=== PATIENT | female | born 1945 | race Caucasian/White ===

== ENCOUNTER 2016-06-24 08:07 | Inpatient (IN) | payer MEDICARE, MEDICAID ==
[~2016-06-24] VITALS: Ht 152.4 cm; Wt 47.3 kg
[2016-06-24] VITALS (7 sets, daily range): BP systolic 128–152; BP diastolic 58–73; PULSE 73–103; RESP 14–24; O2SAT 95–97
[~2016-06-24 08:07] MED LIST: ACET325T51 PO; ALBU8.5H2 INHALATION; AMLO10TA3 PO; ASPI-973 PO; ATRV10T PO; HCTZ25 PO; KEN25CR EXT; METO50TA3 PO; MULT1CAP33 PO; PLAVIX (*) 75 M75 MG PO; ZES20 PO
--- NOTE | 2016-06-24 08:19 | ED.REPORT ---
HPI-Chest Pain 40 and Over Date of Service Jun 24, 2016 ED Provider: Wood Siegel MD 71 year old female with a history of HTN who is an everyday smoker presents to the ER via EMS accompanied by her son and [id number] complaining of chest pressure and palpitations early this morning. Symptoms are currently resolved. She states that she awakened around 02:00-03:00 feeling weak and diaphoretic. Shortly after awakening she experienced chest discomfort, palpitations, and mild nausea. Patient denies radiation of pain to the back, neck, or upper extremities, SOB, history of OR, and CAD. Nursing Notes Stated Complaint: EPIGASTRIC PAIN Chief Complaint: General Complaint Nursing Notes Reviewed: Yes Allergies: Coded Allergies: codeine (Verified Allergy, Mild, Hallucinations, 06/24/16) oxycodone (Verified Adverse Reaction, Unknown, N/V, 06/24/16) Uncoded Allergies: OPIOIDS (Allergy, Unknown, Nausea,Vomiting, 06/24/16) SOME SOAP (Allergy, Unknown, RASH, 11/19/04) Scheduled Albuterol HFA (Proair HFA) 8.5 Gm Hfa.aer.ad 2 PUFFS INHALATION Q4H Amlodipine (Amlodipine) 10 Mg Tablet 10 MG PO DAILY Aspirin (Aspirin) 81 Mg Tablet 81 MG PO DAILY Atorvastatin (Lipitor) 10 Mg Tab 10 MG PO DAILY Clopidogrel Bisulfate (Plavix) 75 Mg Tablet 75 MG PO DAILY Hydrochlorothiazide (Hydrochlorothiazide) 25 Mg Tablet 25 MG PO DAILY Lisinopril (Lisinopril) 20 Mg Tablet 20 MG PO DAILY Metoprolol Tartrate (Metoprolol Tartrate) 50 Mg Tablet 50 MG PO BID Multivitamin (Multivitamins) 1 Each Capsule 1 EACH PO DAILY Triamcinolone Acet (Triamcinolone Acetonide Cream) 1 Applic/0.25 Gm Cr 1 APPLIC EXT BID General Time Seen by MD: 08:14 Chief Complaint Chest pressure Hx Obtained From: Patient Arrived By: Ambulance Sudden in Onset?: Yes Onset Occurred: 5 - 8 hours ago Location: : Substernal Quality: Pressure Severity: Current: No pain currently Severity: Maximum: Moderate Associated with: Reports: Diaphoresis, Nausea, Palpitations, Weakness, Denies: Shortness of Breath Context Related History: Reports: Hypertension, Denies: Diabetes mellitus, Myocardial infarction Past Medical History Past Medical History Reports: Hypertension, Denies: Diabetes mellitus Past Surgical History Bleeding stomach ulcer with resection Carotid stent placement Reports: Cholecystectomy, Hysterectomy Family History Parents [place], CVA Smoking History Current Every Day Smoker Social History Other Social History: Good social support Review of Systems Constitutional: Reports: Weakness - generalized, Denies: Chills, Fever Respiratory: Denies: Non-productive cough, Shortness of breath Cardiovascular: Reports: Chest pain, Palpitations GI: Reports: Nausea, Denies: Diarrhea, Vomiting Musculoskeletal: Denies: Back pain, Extremity pain, Neck pain Skin: Reports Diaphoresis Complete sys rev & neg: except as marked. Physical Exam Initial Vital Signs Vital Signs (First) Date Time Temp Pulse Resp B/P Pulse Ox O2 Delivery O2 Flow Rate FiO2 06/24/16 08:16 36.8 83 14 152/58 97 Room Air Initial VS: Reviewed Head / Eyes: Atraumatic, Normocephalic Neck: Supple, Non-tender, Full range of motion Extremities: Vascular intact, Neuro intact, No swelling, No tenderness Skin: Warm, Dry, No cyanosis Neurologic: Alert, Oriented, Nonfocal General/Constitutional: Awake, Alert, Well appearing, Well developed, Well nourished Respiratory / Chest: Breath sounds NL, Breath sounds = bilat, No respiratory distress, No rales, No rhonchi, No wheezing, No stridor, No chest tenderness Cardiovascular: Heart rate NL, Regular rhythm Heart Sounds / Murmur: Positive: Systolic murmur present.. (II/, right second intercostal space) Abdomen: Soft, Non-tender, No guarding, No rebound, No distention Interpretation & Diagnostics Lab Results Interpretation Result Diagram: 06/24/16 0810 06/24/16 0810 Test 06/24/16 08:10 06/24/16 10:38 White Blood Count 16.3th/mm3 (3.8-10.1) Red Blood Count 3.49mil/mm3 (3.90-5.20) Hemoglobin 11.6g/dL (12.0-15.6) Hematocrit 33.4% (35.0-46.0) Mean Corpuscular Volume 95.7fL (81-100) Mean Corpuscular Hemoglobin 33.2pg (27.0-35.0) Mean Corpuscular Hemoglobin Concent 34.7% (32.0-37.0) Red Cell Distribution Width 12.2% (12.3-15.4) Platelet Count 287bil/L (150-400) Neutrophils (%) (Auto) 67.1% (40-74) Lymphocytes (%) (Auto) 24.4% (14-46) Monocytes (%) (Auto) 6.4% (4-12) Eosinophils (%) (Auto) 1.6% (0-5) Basophils (%) (Auto) 0.2% (0-3) Prothrombin Time 10.6sec (8.1-12.5) Prothromb Time International Ratio 0.99ratio Sodium Level 137mEq/L (134-144) Potassium Level 3.6mEq/L (3.5-5.2) Chloride Level 95mEq/L (97-108) Carbon Dioxide Level 26mmol/L (18-29) Blood Urea Nitrogen 45mg/dL (8-27) Creatinine 0.76mg/dL (0.57-1.00) Estimat Glomerular Filtration Rate 108mL/min (>59) Glucose Level 114mg/dL (60-99) Calcium Level 9.7mg/dL (8.5-10.1) Total Bilirubin 0.7mg/dL (0.0-1.2) Aspartate Amino Transf (AST/SGOT) 17U/L (0-50) Alanine Aminotransferase (ALT/SGPT) 13U/L (0-32) Alkaline Phosphatase 55U/L (25-165) Total Protein 7.0g/dL (6.4-8.4) Albumin 4.4g/dL (3.4-5.0) Lab Results Interpretation: ECG Interpretation Time: 08:20 Interpreted by: ED physician Normal ECG Interpretation: Normal rate, Normal sinus rhythm, No acute ischemic changes, Normal QRS, Normal axis, Normal intervals, No change from prior ECGs, Adequate tracing Rhythm Strip Interpretation : Rhythm Strip Interpretation: EMS ECG, prior to arrival in the ER: 1mm ST elevation aVR Abnormal T in aVL ST depression in II, III, aVF Time: 07:22 Rhythm Strip Interpretation: Interpreted by me X-Ray Chest Interpretation Chest Xray Interpretation: IMPRESSION: No acute cardiopulmonary disease. Dictated by: Milind Ryder M.D. on 06/24/2016 at 9:21 Approved by: Milind Ryder M.D. on 06/24/2016 at 9:21 View: Portable, 1 view Interpretation / Wet Read by: Interpret - Radiologist Re-Eval/Medical Decision Source of Hx: Old records Time of Eval: 10:13 Re-Evaluation/Progress Note: Discussed lab and radiology results and need for admission. Patient is amenable to the plan. All other questions addressed. 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 I, Dr. Siegel, personally performed the history, physical exam and medical decision-making; I reviewed and confirmed the accuracy of the information in the transcribed note. Signed by: Kwadwo Allen, 06/24/2016 and 10:18 copies to: Alexsandra Cortez MD, Kirk H MD Jun 24, 2016 08:19 RICHARD ANLGIN Jun 24, 2016 08:24
[2016-06-24] MEDS ORDERED: Nitroglycerin 2% 1 Gm Ointment TOPICAL ONE (08:20)
[2016-06-24] MEDS ORDERED: MeTOProlol 1 mg/mL 5 mL Inj IVPUSH PRN (08:20)
[2016-06-24 08:42] LABS: INR 0.99 ratio
[2016-06-24] MEDS ORDERED: HYDR25TA4 PO (08:43)
[2016-06-24] MEDS ORDERED: CLOP75TA3 PO (08:43)
[2016-06-24] MEDS ORDERED: LISI-567 PO (08:43)
[2016-06-24 08:46] LABS: BASOPHILS % (AUTO) 0.2 % (0-3); EOSINOPHILS % (AUTO) 1.6 % (0-5); MONOCYTES % (AUTO) 6.4 % (4-12); Mean Corpuscular Hemoglobin 33.2 pg (27.0-35.0); Mean Corpuscular Volume 95.7 fL (81-100); NEUTROPHILS % (AUTO) 67.1 % (40-74); Platelet Count 287 bil/L (150-400)
[2016-06-24 08:48] LABS: TROPONIN T 0.01 ug/L (0.0-0.011)
--- NOTE | 2016-06-24 09:23 | DRSVH ---
PROCEDURE: X-RAY CHEST ONE VIEW, PORTABLE ([id number]) INDICATIONS: CHEST PAIN TECHNIQUE: One view of the chest was acquired. COMPARISON: [facility], , CHEST 1VW (PORTABLE), 06/28/2012, 16:18. FINDINGS: Surgical changes and devices: Surgical clips in the left neck. Lungs and pleura: No pleural effusions or pneumothorax. Lungs are clear. Mediastinum: Mediastinal contours appear normal. Heart size is normal. Mitral annular calcificatio n noted. Bones and chest wall: No suspicious bony lesions. Overlying soft tissues appear unremarkable. IMPRESSION: No acute cardiopulmonary disease. Dictated by: Milind Ryder M.D. on 06/24/2016 at 9:21 Approved by: Milind Ryder M.D. on 06/24/2016 at 9:21
[2016-06-24] MEDS ORDERED: Senna-Docusate 8.6-50 mg Tablet PO PRN (10:40)
[2016-06-24] MEDS ORDERED: Polyethylene Glycol (PEG) 17 Gm Powder PO PRN (10:40)
[2016-06-24 11:46] LABS: TROPONIN T 0.01 ug/L (0.0-0.011)
[2016-06-24] MEDS ORDERED: ACET-171 PO (13:26)
--- NOTE | 2016-06-24 14:05 | NUR ---
Admit nurse note Admission assessment completed in the ER. Med rec completed per PCP list and pt. recall. Pt. c/o 11/15 chronic back pain, asks for tylenol, which is what she usually takes. notified. Pt. also c/o increasing stomach pain worse when her stomach is empty, as well as change in taste and appetite. Hx significant for bleeding ulcer and partial gastrectomy. Pt. educated about collecting stool sample when she has a bm. Pt. states she has had some depression and anxiety with the winter "shut in" but feels a bit better lately. States she manages well at home with her partner Francisco. Pt. is steady on her feet up to the bathroom but c/o feeling weak. Allergies verified and allergy sticker placed. Pt. states "most pain meds" especially opioids make her n/v. Pt. declines smoking quit kit. Advance directives information given per pt. request. Pt. oriented to room, call garcia and fall precautions. Report to be given when a receiving RN is assigned. Addendum: 06/24/16 at 1524 by LETY DE JESUS RN Report given to Jana Holland.
[2016-06-24] MEDS ORDERED: Acetaminophen IV 1,000 MG in IV Premix 1 EACH IV ONE (14:45)
[2016-06-24] MEDS ORDERED: Pantoprazole 4 mg/mL 10 mL Inj IVPUSH ONE (14:45)
[2016-06-24] MEDS ORDERED: Albuterol 2.5 mg/3 mL Inhalation Solution NEB PRN (15:05)
--- NOTE | 2016-06-24 15:06 | PCM.HPMED ---
Subjective Date of Service Jun 24, 2016 Primary Provider: Admitting Physician: Primary Care Physician: Alexsandra Cortez MD Attending Physician: Chief Complaint: Chest pressure History of Present Illness: 71 year-old female past medical history of known vascular disease, status right endarterectomy, and long history of tobacco dependence, presenting to emergency room today following chest pain of abrupt onset around 2:00 in the morning which woke her from sleep. At that time she noted experiencing profuse diaphoresis, intermittent sweats and chills, and shortness of breath. Condition did improve over next 15 minutes, she has continued to experience recurrent palpitations and chest pressure since that time. Preceding this event she has noted approximately 1 week history of upset stomach and indigestion, abnormal bowel function intermittent constipation and a bout of diarrhea yesterday evening. Additionally she notes experiencing significant amount of gas and bloating which is uncommon for her. She denies any previous history of chest pressure or pain experienced earlier today. She has not been experiencing any exertional dyspnea, or anginal symptoms preceding this event. She she follows regularly with her primary care doctor in outpatient setting, after [facility], who had noted previously that she suffered from hyperlipidemia and elevated blood pressures but these have been appropriately managed and she reports are in good control. She denies any history of extensive cardiac workup , as she has never experienced any chest pains or other cardiac symptoms in the past. At time of my exam she notes continued to experience some fluttering sensations of heart, without overt chest pain. She denies any recurrence of diaphoresis, or chills since initial event. She does note continued gassiness and bloating. She also notes significant low back/sacral pain, she experiences intermittently but is much worse today especially after the last couple of hours of hospital bed. He has no other complaints at this time. Review of Systems: 10 point review of systems was conducted and entirely negative excepting pertinent positives and negatives included in above history of present illness. Allergies Coded Allergies: codeine (Verified Allergy, Mild, Hallucinations, 06/24/16) oxycodone (Verified Adverse Reaction, Unknown, N/V, 06/24/16) Uncoded Allergies: OPIOIDS (Allergy, Unknown, Nausea,Vomiting, 06/24/16) SOME SOAP (Allergy, Unknown, RASH, 11/19/04) Home Medications Albuterol HFA (Proair HFA) 8.5 Gm Hfa.aer.ad 2 PUFFS INHALATION Q4H Amlodipine (Amlodipine) 10 Mg Tablet 10 MG PO DAILY Aspirin (Aspirin) 81 Mg Tablet 81 MG PO DAILY Atorvastatin (Lipitor) 10 Mg Tab 10 MG PO DAILY Clopidogrel Bisulfate (Plavix) 75 Mg Tablet 75 MG PO DAILY Hydrochlorothiazide (Hydrochlorothiazide) 25 Mg Tablet 25 MG PO DAILY Lisinopril (Lisinopril) 20 Mg Tablet 20 MG PO DAILY Metoprolol Tartrate (Metoprolol Tartrate) 50 Mg Tablet 50 MG PO BID Multivitamin (Multivitamins) 1 Each Capsule 1 EACH PO DAILY Triamcinolone Acet (Triamcinolone Acetonide Cream) 1 Applic/0.25 Gm Cr 1 APPLIC EXT BID PMH Hypertension Hyperlipidemia Gastric ulcer disease. Surgical History Bleeding stomach ulcer with resection Carotid endarterectomy Cholecystectomy Hysterectomy Family History Parents [place], CVA Social History Hx Alcohol Use: No Hx Substance Use: No Hx Tobacco Use: Yes Smoking Status: Current Every Day Smoker Exam Vital Signs Vital Sign - Last Date Time Temp Pulse Resp B/P Pulse Ox O2 Delivery O2 Flow Rate FiO2 06/24/16 09:10 85 18 139/65 97 Room Air 06/24/16 08:16 36.8 Exam General: Patient is alert and oriented, in no acute distress. Pleasant and cooperative examination HEENT: Pupils are round and reactive to light, extraocular eye muscles are intact. Mucous membranes are moist. No oral lesions noted. Neck is supple without masses. No JVD demonstrated. Heart: Regular rate and rhythm, no murmurs rubs or gallops. Bounding pulse Lungs: Clear to auscultation bilaterally. No wheezes crackles or rhonchi. Abdomen: Bowel sounds present, normoactive. Abdomen is nontender and nondistended. No organomegaly noted on palpation. No guarding. Extremities: Well perfused. Demonstrate no edema, no calf pain on palpation. Dorsal pedis pulses present bilaterally. Neurologic: Nonfocal examination. Cranial nerves II through XII are grossly intact. There is no tremor or other gross abnormality noted on exam. Lab and Diagnostics Result Diagram: 06/24/1680906/24/16809 Assessment & Plan 71-year-old female past medical history significant for extensive tobacco use, known carotid vascular disease, and family history of coronary artery disease, presenting with chest pain of acute onset at approximately 2:00 this morning which woke her from sleep and was accompanied with diaphoresis, placed on observation at this time for further evaluation of possible acute coronary syndrome. 1. Chest pain/rule out ACS - Patient was placed on hospital observation, monitor on continuous telemetry, all trending troponin values. - Echocardiogram and cardiac stress test apparently ordered and pending - Patient will be provided when necessary nitroglycerin in addition to morphine sulfate as needed for chest pain - Patient initiated on aspirin 81 mg daily, and continued on home statin. 2. Abdominal upset/ history of gastric ulcer disease - Patient is certainly at high risk for gastroesophageal reflux given history of ulcer disease. - We will trial intravenous proton pump inhibitor treatment of symptoms 3. Hyperlipidemia - Continue home statin consider titration to high intensity based on an a.m. lipid value, and other risk factors as determined during this hospitalization - We will additionally continue home clopidogrel given history of endarterectomy 4. Hypertension - Continue patient's own medications and monitor blood pressures during observation consider further changes as needed. 5. Low back/sacral pain - We will provide IV Tylenol at this time patient nothing by mouth - Restart oral therapy following stress testing. - Morphine also available for breakthrough pain not controlled with acetaminophen. 6. Nicotine dependence - Nicotine patch will be provided while patient in hospital. - Counseling on smoking cessation was provided to patient during admission Pain Evaluation: Adequate Pain Control GI Prophylaxis: Proton Pump Inhibitor VTE Mechanical Devices: Intermittant Pneumatic CD Resuscitation Status: CPR: Attempt Resuscitation Time spent 45 minutes Arben Liang DO Jun 24, 2016 15:06
--- NOTE | 2016-06-24 17:00 | NUR ---
admit Patient admitted to Room 239-2, A/O x3. Oriented to room and unit. Saline lock on Left AC, intact and patent. Denies any pain at this time. On 1 Person standby assist, patient weak at this time. Made comfortable in bed. Will continue to monitor.
[2016-06-24] MEDS: Sodium Chloride LOK Flush 10 mL Syringe IVFLUSH SCH (17:41)
[2016-06-25] VITALS (7 sets, daily range): BP systolic 112–129; BP diastolic 62–70; PULSE 70–101; RESP 18–19; O2SAT 95–98
[2016-06-25] MEDS: Sodium Chloride LOK Flush 10 mL Syringe IVFLUSH SCH ×3 (00:05→16:30)
--- NOTE | 2016-06-25 01:12 | NUR ---
Gas Pain Pt is stating stomach upset and gas. Pt received Protonix 40mg IV with good result earlier in day. Pt is NPO for possible stress test in A.M. paged
--- NOTE | 2016-06-25 05:51 | NUR ---
Palpitations Pt states she feels palpitations, diaphoretic, and feels warm. r&d lab technician states SR 74 PAC's 1st time and SR 80s second time. Pt is uneasy by due to cardiac reason why she is here. Charge nurse asked for assistance in calming patient. Care continues.
[2016-06-25 07:03] LABS: BASOPHILS % (AUTO) 0.3 % (0-3); EOSINOPHILS % (AUTO) 1.8 % (0-5); MONOCYTES % (AUTO) 7.1 % (4-12); Mean Corpuscular Volume 95.7 fL (81-100); NEUTROPHILS % (AUTO) 57.4 % (40-74); Platelet Count 208 bil/L (150-400)
[2016-06-25] MEDS ORDERED: Acetaminophen IV 1,000 MG in IV Premix 1 EACH IV PRN (08:40)
[2016-06-25] MEDS: Ondansetron 2 mg/mL 2 mL Inj IVPUSH PRN (09:17)
--- NOTE | 2016-06-25 11:46 | PCM.PNMED ---
Subjective Date of Service Jun 25, 2016 Subjective Patient had a difficult night, continues to experience epigastric/chest pains, addition to low back pain as well. She was nauseated overnight, had multiple episodes of emesis of yellow bilious fluid. 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 She states her abdomen is still upset and feeling mildly bloated. She denies any loose stools did not have any bowel movements overnight. She has mild amount hungry even in the setting of nausea, feels a small meal may be helpful in settling her stomach. No other acute complaints at this time. Denies shortness of breath or chest palpitations. Cardiology had reviewed the case in the emergency room, and elected to cancel cardiac stress testing given patient's unstable condition. Exam Vital Signs Vital Sign - Last Date Time Temp Pulse Resp B/P Pulse Ox O2 Delivery O2 Flow Rate FiO2 06/25/16 09:00 36.8 96 18 129/70 96 Room Air Intake and Output 06/24/16 06/24/16 06/25/16 Cumulative From/Thru 15:00 23:00 07:00 06/24/16 08:16 - 06/25/16 05:18 Intake Total 818 ml 818 ml Output Total 800 ml 800 ml Balance 18 ml 18 ml Intake Oral 818 ml 818 ml Output Urine Total 800 ml 800 ml General: Alert, Oriented X3, Moderate Distress Eyes: EOMI Mouth: Mucous Membranes Dry Chest & Lungs: Clear to auscultation & percussion Cardiovascular: Regular Rate/Rhythm Abdomen: Tender, Non-distended, No masses, Normoactive bowel tones, Soft Extremities: No cyanosis/clubbing/edma bilat Neurological: Grossly Neurologically Intact IVs and Medications Medications Reviewed: Medications were reviewed in detail Lab and Diagnostics Result Diagram: 06/25/1652906/25/16529 Assessment & Plan 71-year-old female past medical history significant for extensive tobacco use, known carotid vascular disease, and family history of coronary artery disease, presenting with chest pain of acute onset at approximately 2:00 this morning which woke her from sleep and was accompanied with diaphoresis, placed on observation at this time for further evaluation of possible acute coronary syndrome. 1. Chest pain/rule out ACS - Patient was placed on hospital observation, monitor on continuous telemetry, all trending troponin values. - Echocardiogram is still pending , however cardiac stress test was canceled on order from cardiology given patient's unstable condition. At this time gastrointestinal etiology discussed below appears more likely especially in the setting of normal troponin values and no other abnormal findings overnight on telemetry EKG monitoring. We will continue to consider the possibility of an acute coronary syndrome especially given patient's risk factors, nonetheless we will focus more on patient's gastrointestinal complaints at this time as they appear to be paramount in her discomfort and continued need for hospital observation. - Patient initiated on aspirin 81 mg daily, and continued on home statin. 2. Abdominal upset/ history of gastric ulcer disease - Patient is certainly at high risk for gastroesophageal reflux given history of ulcer disease. - We will t continue intravenous proton pump inhibitor treatment of symptoms, which patient notes was helpful yesterday afternoon while in emergency department. - Further we have a CT scan of abdomen with oral contrast pending this morning to evaluate further for possible gastrointestinal pathology. Patient's history of gastrectomy may be contributing to symptoms currently either in the form of infection, obstruction, or impaired emptying. We will consider further treatment and evaluation based on results. - Given poor by mouth intake we will additionally initiate intravenous fluid therapy at this time, to advance diet as tolerated should CT rule out any pathology which may be requiring surgical intervention. 3. Hyperlipidemia - Continue home statin consider titration to high intensity based on an a.m. lipid value, and other risk factors as determined during this hospitalization - We will additionally continue home clopidogrel given history of endarterectomy 4. Hypertension - Continue patient's own medications and monitor blood pressures during observation consider further changes as needed. 5. Low back/sacral pain - We will provide IV Tylenol at this time patient nothing by mouth - Restart oral therapy following stress testing. - Morphine also available for breakthrough pain not controlled with acetaminophen. 6. Nicotine dependence - Nicotine patch will be provided while patient in hospital. - Counseling on smoking cessation was provided to patient during admission Pain Evaluation: Adequate Pain Control GI Prophylaxis: Proton Pump Inhibitor VTE Mechanical Devices: Intermittant Pneumatic CD Resuscitation Status: CPR: Attempt Resuscitation Time spent 35 minutes Arben Liang DO Jun 25, 2016 11:46
[2016-06-25] MEDS: Pantoprazole 4 mg/mL 10 mL Inj IVPUSH SCH ×2 (13:02→18:24)
[2016-06-25] MEDS: 0.9% Sodium Chloride 1,000 ML IV SCH (13:03)
--- NOTE | 2016-06-25 14:45 | DRSVH ---
PROCEDURE: CT ABDOMEN AND PELVIS WITHOUT CONTRAST ([id number]) INDICATIONS: abdominal pain/vomiting TECHNIQUE: After the administration of oral contrast, 5 mm thick sections acquired from the diaphragms to the sy mphysis. 5 mm coronal and sagittal reformats were performed. For radiation dose reduction, the foll owing was used: automated exposure control, adjustment of mA and/or kV according to patient size. COMPARISON: None. FINDINGS: Image quality: Excellent. ABDOMEN: Lung bases: Mild scarring/atelectasis in lung bases. Heart normal size. Prominent mitral annular calc ifications Solid organs: Liver and spleen are normal in size. Gallbladder surgically absent. Pancreas is norm al in size. No adrenal nodules. Both kidneys are normal in size, without hydronephrosis or nephroli thiasis. Peritoneum and bowel: Bowel loops demonstrate normal wall thickness and caliber. No free fluid or a ir. Appendix not definitely visualized however no suspicious right lower quadrant inflammatory chandra es. Numerous colonic diverticula are present although no focal diverticulitis identified. Nodes and vessels: No retroperitoneal or mesenteric adenopathy by size criteria. Aorta and inferior vena cava are normal in size. There is extensive atheromatous calcification throughout the aorta. Miscellaneous: No ventral hernias. PELVIS: Genitourinary: Bladder wall thickness is normal. Miscellaneous: No inguinal hernias or adenopathy. Bones: No suspicious bony lesions. Low curvature of the spine and scattered discogenic changes. No vertebral body compression fractures. IMPRESSION: No bowel obstruction. Incidental colonic diverticulosis. Appendix not visualized however no suspicious right lower quadrant inflammatory changes. Please corre late clinically and with laboratory data. Dictated by: Alex Kennedy M.D. on 06/25/2016 at 14:33 Approved by: Alex Kennedy M.D. on 06/25/2016 at 14:43
--- NOTE | 2016-06-25 16:21 | NUR ---
Social Work Note Initial Assessment: D/A: See Initial Assessment. The Pt is 71 y/o female that was admitted under observation status for chest pain resolved. The Pts PCP is MD Alexsandra Cortez and her insurance is Medicare with a [facility] supplement, no LTC or VA benefits. The Pts readmission score is 3. EMR reviewed. The Pt lives independently in a mobile home in [place] with her partner Francisco, two steps outside the home. DPOA paperwork discussed, Pt stated that she was given the paperwork to fill out. The Pt stated that Francisco would be her DPOA. The Pt does not use any DME and continues to drive. The Pt reports that her daughter in law or son will provide transportation home for discharge. No needs anticipated, SW to follow if needs arise. P: The Pt is not medically stable for discharge. Family to provide transportation for discharge. No anticipated needs identified at this time, SW to follow if needs arise. Suzette Gamino, GRIPPER ATTACHER [employer] [place]
--- NOTE | 2016-06-25 16:23 | NUR ---
Social Work Note Initial Assessment: D/A: See Initial Assessment. The Pt is 71 y/o female that was admitted under observation status for chest pain resolved. The Pts PCP is MD Alexsandra Cortez and her insurance is Medicare with a [facility] supplement, no LTC or VA benefits. The Pts readmission score is 3. EMR reviewed. The Pt lives independently in a mobile home in [place] with her partner Francisco, two steps outside the home. DPOA paperwork discussed, Pt stated that she was given the paperwork to fill out. The Pt stated that Francisco would be her DPOA. The Pt does not use any DME and continues to drive. The Pt reports that her daughter in law or son will provide transportation home for discharge. No needs anticipated, SW to follow if needs arise. P: The Pt is not medically stable for discharge. Family to provide transportation for discharge. No anticipated needs identified at this time, SW to follow if needs arise. MITCHELL [employer] [place] Addendum: 06/25/16 at 1623 by KRISTA CABRERA SS Amended: Links added.
--- NOTE | 2016-06-25 19:09 | NUR ---
Nausea/Pain/Mobility Patient nauseated this morning, Zofran 4 mg given and protonix IV given with relief. Back pain of 6-7/10 noted IV Tylenol given with good result. Ambulating well from bed to bathroom, no dizziness noted. Small feeding offered and tolerated the whole afternoon, for possible discharge tomorrow. Will continue to monitor.
--- NOTE | 2016-06-25 21:46 | NUR ---
Restless leg Pt restless leg is bothering her. She usually takes OTC medication for restless leg and does not have anything prescribed. paged.
[2016-06-26] VITALS (9 sets, daily range): BP systolic 100–129; BP diastolic 50–67; PULSE 66–91; RESP 14–24; O2SAT 95–97
[2016-06-26] MEDS: Sodium Chloride LOK Flush 10 mL Syringe IVFLUSH SCH ×3 (00:30→16:30)
[2016-06-26] MEDS: 0.9% Sodium Chloride 1,000 ML IV SCH ×3 (01:25→17:42)
[2016-06-26 08:48] LABS: BASOPHILS % (AUTO) 0.3 % (0-3); EOSINOPHILS % (AUTO) 2.3 % (0-5); MONOCYTES % (AUTO) 7.6 % (4-12); Mean Corpuscular Hemoglobin 33.6 pg (27.0-35.0); Mean Corpuscular Volume 96.4 fL (81-100); NEUTROPHILS % (AUTO) 59.2 % (40-74); Platelet Count 198 bil/L (150-400)
[2016-06-26] MEDS ORDERED: Pantoprazole Inj 80 MG in 0.9% Sodium Chloride 100 ML IV ONE (10:55)
--- NOTE | 2016-06-26 11:00 | NUR ---
Rounds MD to review pt chart for any needed changes as pt is NPO till tomorrow for endoscopy in am with GI. to order protonix drip following discussion with GI. Pt denies and abdominal symptoms or n/v/d.
--- NOTE | 2016-06-26 12:40 | PCM.PNMED ---
Subjective Date of Service Jun 26, 2016 Subjective Patient notes her symptoms are stable but she is still experiencing some abdominal upset/bloating, in addition to loose stools this morning which she noted were very dark. She notes abdominal pain specifically in the upper epigastric region has improved significantly with proton pump inhibitor administration. Her appetite remains poor and she is frequently nauseated. Denies any sweats or chills, denies any chest palpitations or shortness of breath. Exam Vital Signs Vital Sign - Last Date Time Temp Pulse Resp B/P Pulse Ox O2 Delivery O2 Flow Rate FiO2 06/26/16 10:13 78 06/26/16 08:27 36.6 24 117/67 96 Room Air Intake and Output 06/25/16 06/25/16 06/26/16 Cumulative From/Thru 15:00 23:00 07:00 06/24/16 08:16 - 06/26/16 06:00 Intake Total 2167 ml 1331 ml 4316 ml Output Total 800 ml Balance 2167 ml 1331 ml 3516 ml Intake Oral 1788 ml 500 ml 3106 ml IV Total 379 ml 831 ml 1210 ml Output Urine Total 800 ml # Voids 6 3 9 # Bowel Movements 1 1 Exam General: Alert, Oriented X3, Mild Distress with pale complexion, appears weak Eyes: EOMI, sclera are pale. Mouth: Mucous Membranes Dry Chest & Lungs: Clear to auscultation & percussion Cardiovascular: Regular Rate/Rhythm Abdomen: Tender diffusely but Non-distended, No masses, Normoactive bowel tones , Soft Extremities: No cyanosis/clubbing/edema bilat Neurological: Grossly Neurologically Intact IVs and Medications Medications Reviewed: Medications were reviewed in detail Lab and Diagnostics Result Diagram: 06/26/1672606/26/16726 Assessment & Plan 71-year-old female past medical history significant for extensive tobacco use, known carotid vascular disease, and family history of coronary artery disease, presenting with chest pain of acute onset at approximately 2:00 this morning which woke her from sleep and was accompanied with diaphoresis, placed on observation at this time for further evaluation of possible acute coronary syndrome. 1. Abdominal upset/ history of gastric ulcer disease/ acute GI bleed with progressive anemia. - Patient is certainly at high risk for gastroesophageal reflux given history of ulcer disease. - Given downward trending H&H values and history of dark stool, and addition to no evidence of alternative cause, patient certainly appears to be suffering from active gastrointestinal bleed. - Gastroenterology has been notified and plans endoscopy in the a.m.. - A she has been made nothing by mouth and Protonix drip has been initiated - We will continue volume repletion with 125 mL per hour of normal saline. - Follow-up afternoon H&H level to evaluate for continued blood loss/status of anemia. - Stool guaiacs are still pending, ordered on admission. - Dual antiplatelet therapy has been held in the setting of concern for active bleeding, however must be reconsidered moving forward given patient's cardiac history. 2. Chest pain/rule out ACS - Patient was placed on hospital observation, monitor on continuous telemetry, all trending troponin values. - Echocardiogram just no evidence of cardiac dysfunction which could support a diagnosis of acute coronary syndrome. Cardiac stress test was canceled given patient's unstable medical condition . - We will consider further once patient stabilized . - We will hold aspirin at this time . - Continue to monitor on telemetry. 3. Hyperlipidemia - Continue home statin consider titration to high intensity based on an a.m. lipid value, and other risk factors as determined during this hospitalization - We will additionally continue home clopidogrel given history of endarterectomy 4. Hypertension - Continue patient's own medications and monitor blood pressures during observation consider further changes as needed. 5. Low back/sacral pain - We will provide IV Tylenol at this time patient nothing by mouth - Restart oral therapy following stress testing. - Morphine also available for breakthrough pain not controlled with acetaminophen. 6. Nicotine dependence - Nicotine patch will be provided while patient in hospital. - Counseling on smoking cessation was provided to patient during admission Pain Evaluation: Adequate Pain Control GI Prophylaxis: Proton Pump Inhibitor VTE Mechanical Devices: Intermittant Pneumatic CD Resuscitation Status: CPR: Attempt Resuscitation Time spent 30 minutes Arben Liang DO Jun 26, 2016 12:40
--- NOTE | 2016-06-26 13:09 | NUR ---
Activity Pt up to chair for >1 hour prior to lunch. Stand by assist.
[2016-06-26] MEDS ORDERED: Non-Formulary ORAL Med PO PRN (13:25)
[2016-06-26] MEDS: Pantoprazole Inj 80 MG in 0.9% Sodium Chloride 80 ML IV SCH ×4 (13:30→23:50)
--- NOTE | 2016-06-26 14:30 | NUR ---
Inpatient status effective today, [facility] signed
--- NOTE | 2016-06-26 15:00 | DRSVH ---
[facility] [address] [facility] [place] [address] Echocardiogram Report Name: SEMAJ AUGUST MStudy Date : 06/26/2016 Height: 60 in Hospital Exam Location: [facility] Weight: 98 lb Gender: Female BSA: 1. 4 m2 : 1945 Age: 71 yrs BP: 112 /62 mmHg Reason For Study: Chest pain Ordering Physician: HOSPITALIST [facility] Performed By: Saima Dillard Referring Physician: Dr Alexsandra Cortez Interpretation Summary The left ventricle is normal in size, wall thickness, and systolic function without any focal wall motion abnormalities. The ejection fraction is estimated to be 60-65%. The E/A ratio is reversed with an elevated E/E', suggesting impaired early relaxation of the left ventricle with possible increased filling pressures. The right ventricle is normal in size, thickness and function. The right ventricular systolic pressure is estimated at 39 mmHg assuming a right atrial pressure of 3 mm Hg. Compared to the prior echo exam, there has been an increase in the severity of pulmonary hypertension. The left atrium is severely dilated. Right atrial size is normal. There is moderate to severe mitral annular calcification. There is mild mitral regurgitation. Compared to the prior echo study, there has been a decrease in the severity of mitral regurgitation. There is mild aortic stenosis. The calculated aortic valve area is 1.5 cm2. The peak aortic velocity is 2.7 m/sec. The peak aortic velocity on the previous exam was 2.7 m/sec. The aortic root is normal size. Procedure: A two-dimensional transthoracic echocardiogram with color flow and Doppler was performed. The study quality was technically adequate. Comparison is made with the echocardiogram of 12-12-14. The patient was in normal sinus rhythm during the exam. Left Ventricle: The left ventricle is normal in size, wall thickness, and systolic function without any focal wall motion abnormalities. The ejection fraction is estimated to be 60-65%. The E/A ratio is reversed with an elevated E/E', suggesting impaired early relaxation of the left ventricle with possible increased filling pressures. Right Ventricle: The right ventricle is normal in size, thickness and function. Atria: The left atrium is severely dilated. Right atrial size is normal. The interatrial septum is intact with no evidence for an atrial septal defect. Mitral Valve: The mitral valve leaflets appear mildly thickened, but open well. There is moderate to severe mitral annular calcification. There is mild mitral regurgitation. Compared to the prior echo study, there has been a decrease in the severity of mitral regurgitation. Aortic Valve: The aortic valve is not well visualized. There is moderate aortic valve sclerosis. Leaflet mobility is mild to moderately reduced. There is mild aortic stenosis. The calculated aortic valve area is 1.5 cm2. The peak aortic velocity is 2.7 m/sec. The peak aortic velocity on the previous exam was 2.7 m/sec. The aortic valve mean gradient is 15 mmHg. There is trace aortic regurgitation. Tricuspid Valve: The tricuspid valve is normal in structure and function. There is a trace or physiologic amount of tricuspid regurgitation. The right ventricular systolic pressure is estimated at 39 mmHg assuming a right atrial pressure of 3 mm Hg. Compared to the prior echo exam, there has been an increase in the severity of pulmonary hypertension. Pulmonic Valve: The pulmonic valve is not well seen, but is grossly normal. There is no pulmonic valvular regurgitation. Great Vessels: The aortic root is normal size. The dimensions of the ascending aorta are normal. The IVC is of normal diameter and collapses greater than 50% with a sniff. This suggests a low right atrial pressure of 3 mm Hg. Pericardium/ Pleura There is no pericardial effusion. There is no pleural effusion. MMode/2D Measurements & Calculations LVIDd: 4.2 cmLA dimension: 3.6 cm RA long axis: 4.2 cm LVOT diam LVIDs: 2.3 cm FS: 45.5 % LA A2 area: 22.8 cm RA area: 10.5 cm Ao root diam IVSd: 0.81 cmLA A4 area: 25.2 cm RA vol: 22.2 ml LVPWd LA length (vol): 5.7 cm RA : 16.1 ml/m Aortic Jxn : 0.7cm LA vol: 84.8 ml RVDd major: 5.4 cm asc Aorta Diam LA vol index: 61.5 ml/m IVC diam: 1.4 cm CORI (plan) LV reynolds. diameter/BSA LV sys. diameter/BSA RVD1 (basal) : 1.0 cm2 (cm/m^2): 3.0 (cm/m^2): 1.6 : 3.3 cm RVD2 (mid) : 2.8 cm Doppler Measurements & Calculations Ao V2 max MV E max maxwell MV E/A: 0.78 TR max maxwell : 266.7 cm/sec : 112.3 cm/sec Med Peak E' Maxwell : 300.5 cm/sec Ao max PG MV A max maxwell TR max PG : 28.5 mmHg : 144.6 cm/sec E/E' med: 20.5 : 36.1 mmHg Ao mean PG MV P1/2t: 66.3 msec Lat Peak E' Maxwell PA V2 max : 14.5 mmHg : 121.8 cm/sec LVOT Max Maxwell E/E' lat: 13.7 PA mean PG : 116.9 cm/sec E/e' average CORI(I,D): 1.4 cm PA Accel Time sev ratio MV A dur: 0.15 sec: 0.15 sec MV dec time MV P1/2t max maxwell Ao V2 mean LV V1 max PG : 0.21 sec : 177.2 cm/sec MVA(P1/2t): 3.3 cm2 Ao V2 VTI: 57.0 cmLV V1 VTI CORI(V,D): 1.2 cm2 : 28.1 cm PA V2 mean CORI indexed to BSA : 79.0 cm/sec (cm^2/m^2): 0.99 Reading Physician:ABIGAIL
--- NOTE | 2016-06-26 15:08 | NUR ---
Status 1445 VSS, tele stable. Pt denies SOB or feelings of palpitations. Up to bathroom without dizziness/lightheadedness. Denies GI complaints. Remains NPO with ice chips. Family at bedside. Re-educated on signs/symptoms to report.
[2016-06-26] MEDS ORDERED: PEG/Electrolytes 4,000 mL Solution PO ONE (16:00)
--- NOTE | 2016-06-26 17:00 | NUR ---
Status MD at pt bedside to re-check status. Aware of lower trending BP's this afternoon, but no tachycardia or symptoms reported by pt. To continue to monitor and planned endoscopy in am.
--- NOTE | 2016-06-26 17:51 | NUR ---
Restless legs PRN 3 tabs given as ordered for bilateral legs syndrome. per patient i take 3 tabs at home to keep my legs from jumping, jerking, or tingling.
[2016-06-26] MEDS: RESTFUL LEGS PO PRN (23:17)
[2016-06-26] MEDS: Ondansetron 2 mg/mL 2 mL Inj IVPUSH PRN (23:44)
--- NOTE | 2016-06-26 23:58 | NUR ---
Emesis PT was drinking her golytely prep and had a moderate size emesis. Vomitted about 250 of fluids up. MEdicated with zofran for nausea at the time. Continues to drink prep.
[2016-06-27] VITALS (23 sets, daily range): BP systolic 86–123; BP diastolic 34–70; PULSE 66–109; RESP 14–20; O2SAT 92–100
[2016-06-27] MEDS: 0.9% Sodium Chloride 1,000 ML IV SCH ×3 (00:24→16:14)
[2016-06-27] MEDS: Sodium Chloride LOK Flush 10 mL Syringe IVFLUSH SCH ×4 (00:41→23:58)
--- NOTE | 2016-06-27 00:46 | CONS ---
[address] [address] CONSULTATION REPORT PATIENT: SEMAJ AUGUST : 1945 MR#: [id number] ADMIT: 06/24/2016 JOB ID: [id number] DATE OF SERVICE: 06/26/2016 REASON FOR CONSULTATION: Anemia, melena. HISTORY OF PRESENT ILLNESS: A 71-year-old, female, with history of status post cholecystectomy, status post partial gastrectomy due to peptic ulcer disease in the past, hysterectomy, carotid end arterectomy, known peripheral vascular disease, who presents for consultation for melena and anemia. The patient was admitted to the hospital on June 24, 2016, for chest pain. Her troponins were negative at that point in time. The patient states she has had black melanotic stool during the past few days. The patient denies any iron supplements or Pepto-Bismol. The patient had an upper endoscopy in 1988, in which she was later found to have a bleeding peptic ulcer and underwent a partial gastrectomy. Unknown the name or type of surgery. The patient never had a colonoscopy. Denies family history of colon cancer, inflammatory bowel disease, or celiac disease. The patient was found to have a hemoglobin of 11.6, which dropped to 7.5 this morning, and now 7.3. The patient's guaiac status is pending. Her last PT was 10.6, INR 0.99, on June 24, 2016. The patient denies rectal bleeding, nausea, vomiting, hematemesis, abdominal pain, change in bowel habits, or unintentional weight loss. PAST MEDICAL HISTORY: As stated above, include hypertension, hyperlipidemia. PAST SURGERIES: As stated above. MEDICATIONS AT HOME: Albuterol, amlodipine, aspirin, Lipitor, Plavix, hydrochlorothiazide, , metoprolol, multivitamin, triamcinolone. ALLERGIES: CODEINE, OXYCODONE, SOME SOAP, and OPIOIDS that cause her to have some nausea and vomiting. SOCIAL HISTORY: The patient denies alcohol, IV drug use, but smokes every day. FAMILY HISTORY: Negative for colon cancer, inflammatory bowel disease, or celiac disease. REVIEW OF SYSTEMS: The patient denies headache, blurred vision, nausea, vomiting. Positive for chest pain. No shortness of breath, abdominal pain, skin rash joint pain. PHYSICAL EXAMINATION: Vital signs upon presentation: Her temperature is 36.9, pulse 78, blood pressure 103/64, respiratory 16, satting 97% on room air. General: No acute distress. Head: No scars. Anicteric. Supple. Lungs: Clear to auscultation bilaterally. Cardiovascular: Regular rhythm and rate. Abdomen: Soft, nondistended, nontender. Normal bowel sounds. Extremities: Show no cyanosis, clubbing or edema. LABORATORIES: Show a white count 11.0, hemoglobin 7.3, hematocrit 21, MCV 96, platelet count of 198. Sodium 133, potassium 3.5, chloride 96, bicarb 24, BUN 16, creatinine 0.6, glucose 102, calcium 8.3, magnesium 2.0. Total bili is 0.7. AST of 17, ALT of 13, alkaline phosphatase of 55, albumin 4.4. TSH 3.2, free T4 of 1.3. PT 10.6, INR 0.99. CT abdomen and pelvis without contrast on June 25, 2016, shows no bowel obstruction, colonic diverticulosis, otherwise negative. There is extensive atherosclerosis and calcification throughout the entire aorta. ASSESSMENT AND PLAN: A 71-year-old, female, with a history of right endarterectomy, hypertension, hyperlipidemia, peptic ulcer disease, status post partial gastrectomy in the past, cholecystectomy, hysterectomy, peripheral vascular disease, who presents here for melena and drop of her hemoglobin. Differential diagnosis includes bleeding peptic ulcer disease versus pathology within the right side of the colon versus arteriovenous malformation versus bleeding polyp. RECOMMENDATIONS: 1. GoLYTELY prep tonight. 2. EGD and colonoscopy for tomorrow morning. 3. Avoid anticoagulation if possible. 4. Protonix drip.
--- NOTE | 2016-06-27 01:44 | NUR ---
Bowels PT drank entire golytely at this phase. She is still not clear at this time. Stool is watery and still dark(black). She is prepping for endo and colonoscopy in am. She is scheduled for 0900. Addendum: 06/27/16 at 0147 by SETH CLINE RN Amended: Links added.
--- NOTE | 2016-06-27 04:56 | NUR ---
CP PT called this RN into room and c/o increased epigastric pain that is now radiating to LUE and jaw. PT is not SOB. B/P WNL. development technical lead reported some ST depression on tele. notified and ordered EKG. Nitro administered. Pain is slowly decreasing. did not want any labs at this time. WIll CTM.
--- NOTE | 2016-06-27 05:18 | NUR ---
EKG did not have any new changes since prior. MD would like pt transferred to higher level of care. PT did get relief with nitro, but b/p dropped into the 70's. 500cc NS bolus given. CP down to a 2 at this time. Report called to [facility] Kel JAMES. PT will be transferred by this RN.
[2016-06-27] MEDS ORDERED: 0.9% Sodium Chloride 500 ML IV ONE (05:25)
[2016-06-27] MEDS ORDERED: fentaNYL-PF 50 mCg/mL 2 mL Inj IVPUSH PRN (06:00)
[2016-06-27] MEDS: Pantoprazole Inj 80 MG in 0.9% Sodium Chloride 80 ML IV SCH (06:55)
[2016-06-27] MEDS ORDERED: fentaNYL-PF 50 mCg/mL 2 mL Inj ONE (07:06)
[2016-06-27 07:16] LABS: BASOPHILS % (AUTO) 0.2 % (0-3); EOSINOPHILS % (AUTO) 0.7 % (0-5); MONOCYTES % (AUTO) 6.4 % (4-12); Mean Corpuscular Hemoglobin 33.3 pg (27.0-35.0); Mean Corpuscular Volume 98.5 fL (81-100); NEUTROPHILS % (AUTO) 77.7 % (40-74); Platelet Count 189 bil/L (150-400)
--- NOTE | 2016-06-27 07:23 | NUR ---
Transfer of care Received pt from [facility] around 0545. Pt stated that her chest pain had increased to 7/10 from 07/16. EKG ordered and showed some ST depression that was not on the previous EKG. 6L oxymask started and 2mg Morphine were given. Pt stated CP 1/10 after administration of Morphine. Blood drawn by lab and awaiting results. VSS and Tele SR/T
[2016-06-27] MEDS ORDERED: Pantoprazole 40 mg ER24 Tablet PO SCH (07:30)
[2016-06-27] MEDS ORDERED: 0.9% Sodium Chloride 250 ML IV ONE ×2 (07:55→08:30)
[2016-06-27 08:08] LABS: TROPONIN T 0.021 ug/L (0.0-0.011)
[2016-06-27] MEDS ORDERED: Lactated Ringer's 0 ML IV ONE (09:29)
--- NOTE | 2016-06-27 09:57 | PCM.HPANE ---
Patient Data Date of Service: Jun 27, 2016 Surgeon Admitting Provider:Arben Liang DO Attending Provider:Arben Liang DO Primary Care Physician:Alexsandra Cortez MD Other Provider: Reason for Visit Chest Pain Resolved Ht/WT & BMI Height (Feet): 5 Height (Inches): 0.00 Weight (Kilograms): 48.300 Body Mass Index 20.69 Allergies Coded Allergies: codeine (Verified Allergy, Mild, Hallucinations, 06/24/16) oxycodone (Verified Adverse Reaction, Unknown, N/V, 06/24/16) Uncoded Allergies: OPIOIDS (Allergy, Unknown, Nausea,Vomiting, 06/24/16) SOME SOAP (Allergy, Unknown, RASH, 11/19/04) Past Anesthesia History Anesthesia History: Positive for:: Anesthesia Reactions ("Problem waking me up back in 1989.") Diabetes History Hx Diabetes?: No Current Bedside Blood Glucose: 121 MRSA MRSA: No Medications Hypertension Medication: Yes Home Meds Incl Beta Aravind: Yes Previous Beta Aravind Dose >24: Give Dose Perioperatively Reported Medications Acetaminophen 500 Mg [id number] Mg PO Q6H PRN For Pain 06/24/16 Clopidogrel Bisulfate (Plavix)75 Mg Qabupy90 Mg PO DAILY 30 Days Ref 0 06/24/16 Lisinopril 20 Mg Whspcy42 Mg PO DAILY 30 Days Ref 0 06/24/16 Hydrochlorothiazide 25 Mg Calmjv16 Mg PO DAILY 30 Days Ref 0 06/24/16 Multivitamin (Multivitamins)1 Each Capsule1 Each PO DAILY 12/11/15 Triamcinolone Acet (Triamcinolone Acetonide Cream)1 Applic/0.25 Gm Cr1 Applic EXT BID PRN rash #60 GM Ref 0 12/11/15 Albuterol HFA (Proair HFA)8.5 Gm Hfa.aer.ad2 Puffs INHALATION Q4H PRN For Shortness of Breath #1 INHALER 12/11/15 Metoprolol Tartrate 50 Mg Norgeh39 Mg PO BID 30 Days Ref 0 12/11/15 Atorvastatin (Lipitor)10 Mg Tab10 Mg PO DAILY Ref 0 12/11/15 Aspirin 81 Mg Atzqnn09 Mg PO DAILY Ref 0 12/11/15 Amlodipine 10 Mg Shbkfe88 Mg PO DAILY Ref 0 12/11/15 Discontinued Reported Medications Acetaminophen 325 Mg Zluvnv890 Mg PO Q4H PRN For Fever Ref 0 12/11/15 Lisinopril-Expunged Drug, Do Not Renew! 20 Mg Ezionq00 Mg PO 06/28/12 Clopidogrel-Expunged Drug, Do Not Renew! (Plavix-Expunged Drug, Do Not Renew!) 75 Mg Ablkqx00 Mg PO 06/28/12 Hydrochlorothiazide-Expunged, Do Not Renew! 25 Mg Yancik89 Mg PO DAILY 06/28/12 History History of ENT Problems?: No HEENT History: Denies:: Cataracts Dysphagia Glaucoma Sinus Problem Other HEENT Pertinent History: macular degeneration right eye Hx of Heart Problems?: No Cardiovascular History: Positive for:: Chest Pain Heart Murmur Hypertension Denies:: Cardiac Surgery Congestive Heart Failure Edema Irregular Heartbeat Pacemaker Thrombophlebitis Other Cardiac History: pt reports heart murmur Hx of Respiratory Problem?: No Respiratory History: Positive for:: Dyspnea (uses inhaler during spring for allergies) Denies:: Asthma COPD Chest Surgery Emphysema Hemoptysis Pneumonia Tuberculosis Hx Neurologic Problems?: No Neurological History: Positive for:: Dizziness Headaches Denies:: Alzheimer's Disease CVA Dementia Parkinson's Disease Seizures Other Neurological Pertinent: pt here related to episodes of dizziness Hx of GI Problems?: Yes Gastrointestinal History: Positive for:: Heartburn Denies:: Diverticulitis Gastroesphageal Reflux Gastrointestinal Bleeding Hepatitis Hiatal Hernia Rectal Bleeding Hx of Problems?: No Genitourinary History: Denies:: HX of Hemodialysis Kidney Stones Urinary Tract Infection HX of Peritoneal Dialysis: No Female Hx: Denies:: Currently Endometriosis Pelvic Inflammatory Problems with Breasts? Other Skin Pertinent History: pt reports allergies to many soaps Hx Musculoskeletal Problems?: No Musculoskeletal History: Positive for:: Back Injury Denies:: Joint Replacement Musculoskeletal Trauma Hx of Psycho/Social Problems?: Yes Psycho Social History: Positive for:: Anxiety Hx Depression Denies:: Bipolar Disorder Suicide Attempt Hx Surgeries?: Yes (Bleeding stomach ulcer with resection, gallbladder, carotid , hyst) Hx Any Other Health Problems?: No Other History: Positive for:: Hospitalization Denies:: Cancer Thyroid Disease History Blood Transfusions: Positive for:: Accept Blood Products? Denies:: Blood Transfuse Reaction Blood Transfusions Hx Diabetes: NoBedside Blood Glucose: 121 Hx Alcohol Use: NoHx Substance Use: No Smoking Status: Current Every Day Smoker Have You Smoked inLast 12 mo: Yes (1 pack per day)Approx How Many Cigarettes/ day: 20 Stop/Bang Treated for Sleep Apnea?: No Do You Have a CPAP Machine?: No S-Snoring: Do You Snore Loudly: Yes T-Tired: feel tired, fatigued: No O-Obsered: Observed not breath: No P-Blood Pressure: treated: Yes B- Body Mass Index > 35 kg/m2: No A- Age over 50: Yes N- Neck Large Circumference: No G- Gender Male: Yes OLIVIA Total Score: 1 OLIVIA Risk Assessment: High Risk, =/>3 Yes Risk Assessment Category Category 1A: Patient has history of documented sleep apnea, and HAS NOT received any narcotic, sedative or anesthesia administration during this stay. Category 1B: Patient has history of documented sleep apnea, and HAS received any narcotic , sedative or anesthesia administration during this stay Category 2: Patient has SUSPECTED Obstructive Sleep Apnea, and HAS received any narcotic , sedative or anesthesia administration during this stay. Category 3: Patient has SUSPECTED Obstructive Sleep Apnea and HAS NOT received narcotic, sedative or anesthesia administration during this stay. Category 4: Outpatient in Procedural Areas with known sleep apnea or who screen positive for High Risk via the STOP/BANG questionnaire. Exam Exam Vital Signs Vital Signs Date Time Temp Pulse Resp B/P Pulse Ox O2 Delivery O2 Flow Rate FiO2 06/27/16 09:38 37.1 88 16 123/64 06/27/16 08:21 36.8 93 20 100/57 100 OxyMask 6.00 06/27/16 06:11 92 89/49 99 OxyMask 6.00 06/27/16 06:10 109 06/27/16 05:45 36.7 109 106/63 96 Room Air 06/27/16 05:32 99/61 06/27/16 05:14 86/50 06/27/16 04:43 36.6 96 20 114/60 96 General Appearance: Alert, Oriented X3, Cooperative, No Acute Distress HEENT/AIRWAY: MP 2 Lungs: Normal Air Movement Heart: Exam Unremarkable Meds/Labs/Diagnostics Admission Meds Current Medications Pantoprazole 80 mg/Sodium Chloride 120 ml @ 480 mls/hr ONCE ONCE IV Last administered on 06/26/16t 14:16; Start 06/26/16 at 10:55; Stop 06/26/16 at 11:09 ; Status DC Pantoprazole/ Sodium Chloride (Protonix Inj/ Normal Saline) 100 ml @ 10 mls/hr Q10H IV Last administered on 06/26/16 21:28; Start 06/26/16 at 10:55 Polyethylene Glycol/ Electrolytes 4000 ml 4,000 ml ONCE ONCE PO Last administered on 06/26/16 21:58; Start 06/26/16 at 16:00; Stop 06/26/16 at 21:41 ; Status DC Sodium Chloride 500 ml @ 0 mls/hr Q0M ONCE IV Last administered on 06/27/16 05 :30; Start 06/27/16 at 05:25; Stop 06/27/16 at 05:26; Status DC Sodium Chloride (Normal Saline) 250 ml @ 10 mls/hr Q24H ONCE IV Last administered on 06/27/16 09:27; Start 06/27/16 at 07:55; Stop 06/28/16 at 07:54 Bedside Blood Glucose: 121 Labs Test 06/24/16 08:10 06/24/16 11:02 06/25/16 05:30 06/26/16 07:27 Prothrombin Time 10.6sec (8.1-12.5) Prothromb Time International Ratio 0.99ratio Hemoglobin A1c 6.0% (4.8-5.6) Total Bilirubin 0.7mg/dL (0.0-1.2) Aspartate Amino Transf (AST/SGOT) 17U/L (0-50) Alanine Aminotransferase (ALT/SGPT) 13U/L (0-32) Alkaline Phosphatase 55U/L (25-165) Total Protein 7.0g/dL (6.4-8.4) Albumin 4.4g/dL (3.4-5.0) Hold Urine Received (Received) Triglycerides Level 103mg/dL (0-149) Cholesterol Level 131mg/dL (100-199) LDL Cholesterol, Calculated 71.400mg/dL (0-99) VLDL Cholesterol 20.600mg/dL HDL Cholesterol 39mg/dL (>39) Cholesterol/HDL Ratio 3.36 (0.0-4.4) Magnesium Level 2.0mg/dL (1.6-2.6) Thyroid Stimulating Hormone (TSH) 3.260uIU/mL (0.450-4.500) Free Thyroxine 1.36ng/dL (0.82-1.77) Test 06/27/16 06:52 White Blood Count 10.5th/mm3 (3.8-10.1) Red Blood Count 2.01mil/mm3 (3.90-5.20) Hemoglobin 6.7g/dL (12.0-15.6) Hematocrit 19.8% (35.0-46.0) Mean Corpuscular Volume 98.5fL (81-100) Mean Corpuscular Hemoglobin 33.3pg (27.0-35.0) Mean Corpuscular Hemoglobin Concent 33.8% (32.0-37.0) Red Cell Distribution Width 12.1% (12.3-15.4) Platelet Count 189bil/L (150-400) Neutrophils (%) (Auto) 77.7% (40-74) Lymphocytes (%) (Auto) 14.9% (14-46) Monocytes (%) (Auto) 6.4% (4-12) Eosinophils (%) (Auto) 0.7% (0-5) Basophils (%) (Auto) 0.2% (0-3) Sodium Level 138mEq/L (134-144) Potassium Level 3.3mEq/L (3.5-5.2) Chloride Level 100mEq/L (97-108) Carbon Dioxide Level 23mmol/L (18-29) Blood Urea Nitrogen 8mg/dL (8-27) Creatinine 0.51mg/dL (0.57-1.00) Estimat Glomerular Filtration Rate 171mL/min (>59) Glucose Level 119mg/dL (60-99) Calcium Level 8.0mg/dL (8.5-10.1) Troponin T 0.021ug/L (0.0-0.011) Plan Impression Patient chart reviewed, patient interviewed and anesthestic plan with risks, benefits, and alternatives discussed, and informed consent obtained. ASA Physical Status: ASA3 Severe Disease (cad, pvd) Anesthetic Plan: MAC Bene/Risks/Altern/Consents: Yes HP Complete Prior to Induction: Yes Howie Gudino MD Jun 27, 2016 09:57
[2016-06-27] MEDS ORDERED: Lactated Ringer's 1,000 ML IV SCH (09:58)
[2016-06-27] MEDS ORDERED: Lactated Ringer's 1,000 ML IV ONE (09:58)
[2016-06-27] MEDS ORDERED: MetoCLOpramide 5 mg/mL 2 mL Inj IVPUSH PRN (10:00)
[2016-06-27] MEDS ORDERED: Ondansetron 2 mg/mL 2 mL Inj IVPUSH PRN (10:00)
--- NOTE | 2016-06-27 10:14 | PCM.CHPCAR ---
Consult Subjective Date of service Jun 27, 2016 Date of admit Jun 24, 2016 at 15:19 Provider Requesting Consult Requesting Provider: Jong Samano MD Primary Care Physician Primary Care Provider: Alexsandra Cortez MD Chief Complaint Weakness/black stool History of Present Illness This is a pleasant 71 y/o female who presents with GI bleed. She has had black stools for a few days now. No prior hx of CAD but does have hx of carotid disease with left sided carotid endarterectomy. No prior hx of TIA/CVAs. She has been on Plavix and ASA for her carotid disease. I have been asked to see patient because of chest pain classic for angina and ST changes (depressions). Her CP has been waxing and waning since admission. She has no prior coronary stents. She was admitted on 06/24 and her hemoglobin started to drop the following day. She had an echocardiogram which was stable. Normal LVEF and LV wall motion. Mild aortic stenosis. She was scheduled for a cardiac stress test but this was cancelled. Her ASA/Plavix was stopped this morning. Troponins have been negative until this am but her hemoglobin was around 6.7 by this time. She is currently being given the first bag of PRBC. Otherwise she has been hemodynamically stable. Review of Systems General: Reports: Fatigue Ears, Nose, Mouth & Throat: Denies: Any hearing loss Epistaxis or hoarseness Respiratory: Denies: Orthopnea or PND Significant dyspnea Cardiovascular: Reports: Chest Discomfort Gastrointestinal: Reports: Recent melena or hematochezia Ulcers or GI blood loss Genitourinary: Denies: Urinary symptoms Musculoskeletal: Denies: Significant joint or back problems Significant myalgias Neurological: Denies: Any history of stroke/TIA symptoms Psychiatric: Denies: Anxiety Depression Endocrine: Denies: Heat or cold intolerance Integumentary: Denies: Any change in hair or nails Hematologic/Immunologic: Reports: Recent history of anemia PMH Past Medical History Hypertension Hyperlipidemia Gastric ulcer disease. Carotid disease Past Surgical History Bleeding stomach ulcer with resection Carotid endarterectomy Cholecystectomy Hysterectomy Bedside Blood Glucose: 121 Scheduled Amlodipine (Amlodipine) 10 Mg Tablet 10 MG PO DAILY (Reported) Aspirin (Aspirin) 81 Mg Tablet 81 MG PO DAILY (Reported) Atorvastatin (Lipitor) 10 Mg Tab 10 MG PO DAILY (Reported) Clopidogrel Bisulfate (Plavix) 75 Mg Tablet 75 MG PO DAILY (Reported) Hydrochlorothiazide (Hydrochlorothiazide) 25 Mg Tablet 25 MG PO DAILY (Reported ) Lisinopril (Lisinopril) 20 Mg Tablet 20 MG PO DAILY (Reported) Metoprolol Tartrate (Metoprolol Tartrate) 50 Mg Tablet 50 MG PO BID (Reported) Multivitamin (Multivitamins) 1 Each Capsule 1 EACH PO DAILY (Reported) Scheduled PRN Acetaminophen (Acetaminophen) 500 Mg Tablet 500 MG PO Q6H PRN PRN For Pain ( Reported) Albuterol HFA (Proair HFA) 8.5 Gm Hfa.aer.ad 2 PUFFS INHALATION Q4H PRN PRN For Shortness of Breath (Reported) Triamcinolone Acet (Triamcinolone Acetonide Cream) 1 Applic/0.25 Gm Cr 1 APPLIC EXT BID PRN PRN rash (Reported) Discontinued Medications Acetaminophen (Acetaminophen) 325 Mg Tablet 325 MG PO Q4H PRN PRN For Fever ( Reported) Clopidogrel-Expunged Drug, Do Not Renew! (Plavix-Expunged Drug, Do Not Renew!) 75 Mg Tablet 75 MG PO (Reported) Hydrochlorothiazide-Expunged, Do Not Renew! (Hydrochlorothiazide-Expunged, Do Not Renew!) 25 Mg Tablet 25 MG PO DAILY (Reported) Lisinopril-Expunged Drug, Do Not Renew! (Lisinopril-Expunged Drug, Do Not Renew! ) 20 Mg Tablet 20 MG PO (Reported) Current Inpatient Medications Current Medications Pantoprazole 40 mg 40 mg BIDAC IVPUSH Last administered on 06/25/16 18:24; Admin Dose 40 MG; Start 06/25/16 at 11:40; Stop 06/26/16 at 09:27; Status DC Sodium Chloride 1,000 ml @ 125 mls/hr Q8H IV Last administered on 06/27/16 08: 25; Admin Dose 125 MLS/HR; Start 06/25/16 at 11:40 Pantoprazole 40 mg 40 mg DAILYAC PO; Start 06/27/16 at 07:30; Stop 06/27/16 at 07:30; Status DC Pantoprazole/ Sodium Chloride 100 ml @ 10 mls/hr Q10H IV Last administered on 21:28; Admin Dose 10 MLS/HR; Start 06/26/16 at 10:55 Non-Formulary Medication RESTLESS LEG HS PRN PO Last administered on 06/26/16 17:49; Admin Dose 3 EA; Start 06/26/16 at 13:25; Stop 06/26/16 at 23:07; Status DC Midazolam HCl 1-2 mg prn (september pull 2 x 5... Q2MIN PRN IVPUSH; Start 06/27/16 at 06:00; Stop 06/28/16 at 06:01 Fentanyl Citrate 25-50 mCg for comfort... Q2MIN PRN IVPUSH; Start 06/27/16 at 06:00; Stop 06/28/16 at 06:01 Patient Own Medication RESTFUL LEGS TABLE... HS PRN PO Last administered on 23:17; Admin Dose 2 EA; Start 06/26/16 at 23:07 Morphine Sulfate 2-4 Q4H PRN IVPUSH Last administered on 06/27/16 06:08; Admin Dose 2 MG; Start 06/27/16 at 05:50 Aspirin 81 mg DAILY PO; Start 06/27/16 at 08:30 Allergies: Coded Allergies: codeine (Verified Allergy, Mild, Hallucinations, 06/24/16) oxycodone (Verified Adverse Reaction, Unknown, N/V, 06/24/16) Uncoded Allergies: OPIOIDS (Allergy, Unknown, Nausea,Vomiting, 06/24/16) SOME SOAP (Allergy, Unknown, RASH, 11/19/04) Family History Family History Parents [place], CVA Social History Hx Alcohol Use: NoHx Substance Use: NoHx Tobacco Use: Yes Smoking Status: Current Every Day Smoker Living Arrangement: with Friends/Roommate Exam Vital Signs Vital Sign - Last Date Time Temp Pulse Resp B/P Pulse Ox O2 Delivery O2 Flow Rate FiO2 06/27/16 08:21 36.8 93 20 100/57 100 OxyMask 6.00 Intake and Output 06/26/16 06/26/16 06/27/16 Cumulative From/Thru 15:00 23:00 07:00 06/24/16 08:16 - 06/27/16 06:40 Intake Total 929 ml 3700 ml 8945 ml Output Total 3 ml 900 ml 1703 ml Balance 926 ml 2800 ml 7242 ml Intake Oral 350 ml 3700 ml 7156 ml IV Total 579 ml 1789 ml Output Urine Total 3 ml 400 ml 1203 ml Stool Total 500 ml 500 ml # Voids 1 10 # Bowel Movements 0 1 General: Pleasant Cooperative Skin: Warm & dry to touch Head: Normocephalic Eye: EOMS intact No arcus or xanthelasma Neck: No JVD Ears, Nose & Throat: Ears no gross abnormalities Nose no gross abnormalities Chest: Clear auscultation & percussion Cardiac: Regular rhythm Systolic ejection murmur (3/6) Pulses: Pulses full/equal all extremities Abdomen: Soft, non-distended, non-tender Lymphatic: No palpable lymphadenopathy Extremities: Warm w/o deformities,erythema noted Neurological: Alert & oriented No gross motor or sensory deficits Psychological: Affect & interaction appropriate Lab and Diagnostics Labs CBC Test 06/27/16 06:52 White Blood Count 10.5th/mm3 (3.8-10.1) Red Blood Count 2.01mil/mm3 (3.90-5.20) Hemoglobin 6.7g/dL (12.0-15.6) Hematocrit 19.8% (35.0-46.0) Mean Corpuscular Volume 98.5fL (81-100) Mean Corpuscular Hemoglobin 33.3pg (27.0-35.0) Mean Corpuscular Hemoglobin Concent 33.8% (32.0-37.0) Red Cell Distribution Width 12.1% (12.3-15.4) Platelet Count 189bil/L (150-400) Neutrophils (%) (Auto) 77.7% (40-74) Lymphocytes (%) (Auto) 14.9% (14-46) Monocytes (%) (Auto) 6.4% (4-12) Eosinophils (%) (Auto) 0.7% (0-5) Basophils (%) (Auto) 0.2% (0-3) CMP Test 06/24/16 08:10 06/25/16 05:30 06/26/16 07:27 06/27/16 06:52 Hemoglobin A1c 6.0% Total Bilirubin 0.7mg/dL Aspartate Amino Transf (AST/SGOT) 17U/L Alanine Aminotransferase (ALT/SGPT) 13U/L Alkaline Phosphatase 55U/L Total Protein 7.0g/dL Albumin 4.4g/dL Triglycerides Level 103mg/dL Cholesterol Level 131mg/dL LDL Cholesterol, Calculated 71.400mg/dL VLDL Cholesterol 20.600mg/dL HDL Cholesterol 39mg/dL Cholesterol/HDL Ratio 3.36 Magnesium Level 2.0mg/dL Thyroid Stimulating Hormone (TSH) 3.260uIU/mL Free Thyroxine 1.36ng/dL Sodium Level 138mEq/L Potassium Level 3.3mEq/L Chloride Level 100mEq/L Carbon Dioxide Level 23mmol/L Blood Urea Nitrogen 8mg/dL Creatinine 0.51mg/dL Estimat Glomerular Filtration Rate 171mL/min Glucose Level 119mg/dL Calcium Level 8.0mg/dL Troponin T 0.021ug/L Result Diagram: 06/27/16 0652 06/27/16 0652 X-Rays, CTs and MRIs Date of Service: 06/24/16 0810 PROCEDURE: X-RAY CHEST ONE VIEW, PORTABLE ([id number]) INDICATIONS: CHEST PAIN TECHNIQUE: One view of the chest was acquired. COMPARISON: [facility], , CHEST 1VW (PORTABLE), 06/28/2012, 16:18. FINDINGS: Surgical changes and devices: Surgical clips in the left neck. Lungs and pleura: No pleural effusions or pneumothorax. Lungs are clear. Mediastinum: Mediastinal contours appear normal. Heart size is normal. Mitral annular calcification noted. Bones and chest wall: No suspicious bony lesions. Overlying soft tissues appear unremarkable. IMPRESSION: No acute cardiopulmonary disease. Additional Diagnostics: Echo 06/26/2016 Interpretation Summary The left ventricle is normal in size, wall thickness, and systolic function without any focal wall motion abnormalities. The ejection fraction is estimated to be 60-65%. The E/A ratio is reversed with an elevated E/E', suggesting impaired early relaxation of the left ventricle with possible increased filling pressures. The right ventricle is normal in size, thickness and function. The right ventricular systolic pressure is estimated at 39 mmHg assuming a right atrial pressure of 3 mm Hg. Compared to the prior echo exam, there has been an increase in the severity of pulmonary hypertension. The left atrium is severely dilated. Right atrial size is normal. There is moderate to severe mitral annular calcification. There is mild mitral regurgitation. Compared to the prior echo study, there has been a decrease in the severity of mitral regurgitation. There is mild aortic stenosis. The calculated aortic valve area is 1.5 cm2. The peak aortic velocity is 2.7 m/sec. The peak aortic velocity on the previous exam was 2.7 m/sec. The aortic root is normal size. Assessment & Plan Problems: (1) Elevated troponin Plan: -Most likely supply/demand mismatch. She is severely anemic which is causing her elevated troponins, angina, and ST changes. Possibly has underlying CAD but this is not acute coronary syndrome. No further cardiology workup for now. May consider outpatient ischemic workup when she is more stable. -INCREASE atorvastatin to 40 mg po qhs since she had carotid disease and possible underlying CAD. -STOP aspirin and plavix. She has not hx of coronary stents within 1 year. -If you need any further assistance please contact me but for now, I will sign off since there is no need for further cardiology workup. Status: Acute ICD Code: R79.89 (2) Upper gastrointestinal bleeding Plan: -Exacerbated by anti-platelet therapy. -Discontinue aspirin and plavix. May consider low dose aspirin once she is more stable and depends on findings on her GI workup. -Transfuse at least 2 units of PRBCs for symptomatic treatment given that she has ST changes and angina. Fortunately, she has no acute findings on her echocardiogram. Status: Acute ICD Code: K92.2 (3) Carotid artery disease Qualifiers: Laterality: left Qualified Code: I77.9 - Disorder of arteries and arterioles, unspecified Plan: - No hx of prior of TIA/CVA to the best of my knowledge. So I would only recommend low dose ASA with moderate dose of statin. -No Plavix since she has not had any prior hx of TIA/CVA. Status: Chronic ICD Code: I77.9 (4) Hyperlipidemia Plan: -Even in the presence of excellent lipid profile numbers that she has, she should be on atorvastatin 40 mg po qhs just based on the fact that she has carotid disease and now possibly underlying CAD. Status: Chronic ICD Code: E78.5 Pain Evaluation: Adequate Pain Control VTE Mechanical Devices: Intermittant Pneumatic CD Resuscitation Status: CPR: Attempt Resuscitation Time spent 80 minutes Brady Oleary MD Jun 27, 2016 10:13
--- NOTE | 2016-06-27 10:43 | PCM.ANEP1 ---
Post Anesthesia Phase 1 PACU Phase 1 Assessment Date of Service: Jun 27, 2016 Vital Signs Vital Signs Date Time Temp Pulse Resp B/P Pulse Ox O2 Delivery O2 Flow Rate FiO2 06/27/16 10:39 66 16 92/40 100 Nasal Cannula 4 06/27/16 09:44 90 16 112/34 100 Nasal Cannula 4 06/27/16 09:40 87 06/27/16 09:38 37.1 88 16 123/64 06/27/16 08:21 36.8 93 20 100/57 100 OxyMask 6.00 06/27/16 06:11 92 89/49 99 OxyMask 6.00 06/27/16 06:10 109 06/27/16 05:45 36.7 109 106/63 96 Room Air 06/27/16 05:32 99/61 06/27/16 05:14 86/50 06/27/16 04:43 36.6 96 20 114/60 96 Anesthetic Administered: GA Level of Alertness: Sleeping, hard to arouse Pain: No Pain Scale Score: 0 Oxygen Delivery: Nasal Cannula Lungs: Normal Air Movement Howie Gudino MD Jun 27, 2016 10:42
--- NOTE | 2016-06-27 10:43 | PCM.ANEP2 ---
Post Anesthesia Evaluation ASA/CMS Post Anesthesia Date of Service: Jun 27, 2016 VS in Patient's Normal Range?: Yes Resp Stable; Airway Patent?: Yes CV Function & Hydration Stable: Yes Mental Status Recovered?: Yes Pain control Satisfactory?: Yes N/V Control Satisfactory?: Yes Howie Gudino MD Jun 27, 2016 10:43
--- NOTE | 2016-06-27 14:27 | PCM.PNMED ---
Subjective Date of Service Jun 27, 2016 Subjective Overnight: Patient completed [employer] prep and was noted to have black stools. She began to have worsening chest pain throughout the night, and a repeat EKG showed new ST depression in lateral leads. Her chest pain improved with nitroglycerin. Today: She reports her chest pain and shortness of breath are improved for now, but notes some intermittent palpitations. She has no other complaints at this time. Exam Vital Signs Vital Sign - Last Date Time Temp Pulse Resp B/P Pulse Ox O2 Delivery O2 Flow Rate FiO2 06/27/16 13:55 37.3 82 20 96/58 06/27/16 12:17 93 Room Air 06/27/16 10:51 4 Intake and Output 06/26/16 06/26/16 06/27/16 Cumulative From/Thru 15:00 23:00 07:00 06/24/16 08:16 - 06/27/16 06:40 Intake Total 929 ml 3700 ml 8945 ml Output Total 3 ml 900 ml 1703 ml Balance 926 ml 2800 ml 7242 ml Intake Oral 350 ml 3700 ml 7156 ml IV Total 579 ml 1789 ml Output Urine Total 3 ml 400 ml 1203 ml Stool Total 500 ml 500 ml # Voids 1 10 # Bowel Movements 0 1 Exam General: Alert, Oriented X3, No acute distress. Appears pale. Eyes: EOMI, sclera are pale. Neck: JVD present Mouth: Mucous Membranes Moist Chest & Lungs: Crackles at bilateral bases Cardiovascular: Regular Rate/Rhythm, Systolic murmur present Abdomen: Nontender, Non-distended, No masses, Normoactive bowel tones, Soft Extremities: No cyanosis/clubbing/edema bilat Neurological: Grossly Neurologically Intact Lab and Diagnostics Result Diagram: 06/27/16 0652 06/27/16 0652 Assessment & Plan 71-year-old female past medical history significant for extensive tobacco use, known carotid vascular disease, and family history of coronary artery disease, presenting with chest pain of acute onset at approximately 2:00 this morning which woke her from sleep and was accompanied with diaphoresis, placed on observation at this time for further evaluation of possible acute coronary syndrome. 1. Acute upper GI bleed. Present on admission. - Patient is certainly at high risk for gastroesophageal reflux given history of ulcer disease. She has downward trending H&H values and dark stool. However on upper/lower endoscopy, no source of the bleed was noted. We will continue to monitor for signs of active bleed and transfuse as necessary for now. If she continues to bleed, we will search for small bowel or other sources of bleeding. - Dr. Metcalf of GI has been consulted. We appreciate his expertise. - Protonix drip discontinued. - NS @ 125 ml/hr - Trend H&H - Dual antiplatelet therapy has been held in the setting of concern for active bleeding. She may restart on Aspirin after she has stabilized. 2. Acute iron deficiency anemia. Present on admission. Active. - Likely secondary to blood loss. H&H dropped from 11.6 on admission to 6.7 today. - 3U PRBCs ordered. Transfusion goal >9 given pt's cardiovascular history and symptomatic presentation. - Continue to monitor H&H until stable. 3. Chest pain. Present on admission. Active. - Discussed the case with Cardiology. Given the pt's history, this is likely demand ischemia secondary to acute anemia combined with her coronary artery disease. Echocardiogram showed no evidence of cardiac dysfunction which could support a diagnosis of acute coronary syndrome. - Hold aspirin and Plavix - Atorvastatin 40 mg qhs - Continue to monitor on telemetry. - Echocardiogram ordered tomorrow - Trending troponin - Dr. Oleary of Cardiology is consulting. We appreciate his input. 4. Diastolic congestive heart failure, chronic. - Echocardiogram showed EF 60-65%, reversed E/A ratio, elevated E/E' with severe LA dilation. - Continue home lisinopril and metoprolol. 5. Hyperlipidemia - Atorvastatin 40 mg qhs - continue on discharge 6. Hypertension - Continue home medications 7. History of carotid artery disease - S/p carotid endarterectomy. She should restart low-dose aspirin outpatient after stable, but there is not a need to continue Plavix at this time. 8. Low back/sacral pain - We will provide IV Tylenol at this time patient nothing by mouth - Restart oral therapy following stress testing. - Morphine also available for breakthrough pain not controlled with acetaminophen. 9. Nicotine dependence - Nicotine patch will be provided while patient in hospital. - Counseling on smoking cessation was provided to patient during admission GI Prophylaxis: Proton Pump Inhibitor VTE Mechanical Devices: Intermittant Pneumatic CD Resuscitation Status: CPR: Attempt Resuscitation Time spent Patient seen and examined with housestaff. Agree with all attached documentation. Attending Statement Patient seen and examined with housestaff. Agree with all attached documentation. Carlos Contreras Jun 27, 2016 14:27 Jong Samano MD Jun 28, 2016 10:14
[2016-06-27] MEDS ORDERED: Potassium Chloride 20 mEq SR Tablet PO ONE (14:30)
--- NOTE | 2016-06-27 19:34 | NUR ---
Left unit/CP Pt left PCC room 2023 for endoscopy at ~0945 after doing report with receiving endo RN and 1st unit of PRBCs initiated. Pt's am PO medications withheld prior to procedure, MD aware. Pt returned to [facility]CC room 2023 at ~1110 after procedure, Pt A&Ox3, VSS with exception of low BP, Pt's am PO medications non-administered r/t hypotension, MD notified. Pt reporting return of CP, but reported it to not be as severe, MD made aware, EKG obtained. Pt's H/H had dropped to 6.7/19.8 this am, instructed by MD to get blood products running before getting morphine as Pt would be receiving anesthesia in endo, Pt reported CP improving prior to leaving for endo during 1st unit of PRBCs, Pt received total of 3 units of PRBCs this shift, Pt reported feeling less fatigued while receiving 2nd unit of PRBCs, f/u H/H after 3rd unit of PRBCs returned at 11.6/34. Pt reported headache later in the afternoon which tylenol was effective for, but otherwise denied pain.
--- NOTE | 2016-06-27 20:57 | ENDO ---
[address] [address] ENDOSCOPY PROCEDURE PATIENT: SEMAJ AUGUST : 1945 MR#: [id number] ADMIT: 06/24/2016 JOB ID: [id number] DATE OF PROCEDURE: 06/27/2016 PROCEDURE: 1. Esophagogastroduodenoscopy with biopsy. 2. Colonoscopy with biopsy. PREOPERATIVE DIAGNOSIS(ES): Drop in hemoglobin, anemia, melena. POSTOPERATIVE DIAGNOSIS(ES): 1. Status post partial gastrectomy without ulcerations at the anastomosis. 2. Mild nonerosive gastritis. 3. A 2 mm sigmoid polyp, 2 mm rectal polyp, removed by cold biopsy forceps. 4. Severe sigmoid diverticulosis. 5. No overt signs of bleeding seen anywhere during the entire esophagogastroduodenoscopy or colonoscopy with intubation at terminal ileum revealing no blood. ANESTHESIA: Monitored anesthesia care. COMPLICATIONS: None. BLOOD LOSS: Minimal. DESCRIPTION OF PROCEDURE: After risks and benefits have been explained to the patient, informed consent was obtained. After anesthesia administered, the upper endoscope was then inserted into the mouth and intubated into the esophagus, stomach, second portion of duodenum, and the mucosa was carefully examined. After the procedure, the scope withdrawn and the procedure terminated. A colonoscope was then inserted from rectum to the terminal ileum and mucosa. Good exam and prep of the patient was excellent. After the procedure the scope was withdrawn and procedure terminated. FINDINGS: Upon inspection of esophagus, the esophagus is normal without masses, ulcers, lesions. Z-line located 40 cm from incisors. Upon entering stomach, there appeared to be a partial gastrectomy that was performed in the past. No ulcers or masses were seen. Retroflexion was normal. The scope was advanced to the small bowel which was normal without evidence of blood. Upon inspection of the anus, no masses, hemorrhoids, ulcers or fissures that were seen throughout the entire examination. There is a 2 mm sigmoid polyp, 2 mm rectal polyp, removed by cold biopsy forceps. There was also severe sigmoid diverticulosis nonbleeding. Scope was advanced to the terminal ileum without any evidence of blood that was seen. Retroflexion was normal. IMPRESSIONS: 1. A 2 mm sigmoid polyp, 2 mm rectal polyp, removed by cold biopsy forceps. 2. Severe sigmoid diverticulosis. 3. Status post partial gastrectomy. 4. Mild nonerosive gastritis. 5. No overt signs of bleeding seen throughout the entire procedure, including intubation at terminal ileum. RECOMMENDATIONS: 1. Stop Protonix drip. 2. Consider small bowel series. 3. Start clear liquid diet. Advance as tolerated. Will sign off. MTDD
[2016-06-27] MEDS: RESTFUL LEGS PO PRN (21:38)
[2016-06-28] VITALS (8 sets, daily range): BP systolic 109–144; BP diastolic 63–78; PULSE 73–104; RESP 16–20; O2SAT 95–97
[2016-06-28] MEDS: 0.9% Sodium Chloride 1,000 ML IV SCH ×3 (00:27→16:20)
[2016-06-28] MEDS: Sodium Chloride LOK Flush 10 mL Syringe IVFLUSH SCH ×2 (08:30→16:30)
[2016-06-28 09:05] LABS: BASOPHILS % (AUTO) 0.2 % (0-3); MONOCYTES % (AUTO) 7.5 % (4-12); Mean Corpuscular Hemoglobin 31.2 pg (27.0-35.0); Mean Corpuscular Volume 89.5 fL (81-100); NEUTROPHILS % (AUTO) 77.2 % (40-74); Platelet Count 202 bil/L (150-400)
[2016-06-28 10:15] LABS: TROPONIN T 0.152 ug/L (0.0-0.011)
--- NOTE | 2016-06-28 10:18 | PCM.PNSURG ---
Subjective Date of Service: Jun 28, 2016 Date of Service: Jun 28, 2016 Visit Information: Subjective: no acute events overnight. hb 14.2 nl this am. no overt signs gi bleed Postop General: No Complaints Objective Vital Sign- Last 8 Hours Date Time Temp Pulse Resp B/P Pulse Ox O2 Delivery O2 Flow Rate FiO2 06/28/16 09:04 36.5 104 16 144/70 97 Room Air 06/28/16 03:02 37.0 77 20 125/64 96 Room Air Intake and Output- Last 8 Hour 06/28/16 Cumulative From/Thru 07:00 06/24/16 08:16 - 06/28/16 06:09 Intake Total 1727 ml 72951 ml Output Total 2200 ml 6153 ml Balance -473 ml 8013 ml Intake Oral 300 ml 8576 ml IV Total 1427 ml 4350 ml Packed Cells 1240 ml Output Urine Total 2200 ml 5653 ml Stool Total 500 ml # Voids 4 15 # Bowel Movements 4 General: Oriented X3 Neck: Supple Lungs: Clear to Auscultation Abdomen: Benign, Soft, Non-tender, Non-distended, Normoactive bowel tones Extremities: Distal Pulses Palpable Result Diagram: 06/28/16 0850 06/28/16 0850 Assessment & Plan Impression A 71-year-old, female, with a history of right endarterectomy, hypertension, hyperlipidemia, peptic ulcer disease, status post partial gastrectomy in the past, cholecystectomy, hysterectomy, peripheral vascular disease, who presents here for melena and drop of her hemoglobin. s/p egd/colon 06/27/16- IMPRESSIONS: 1. A 2 mm sigmoid polyp, 2 mm rectal polyp, removed by cold biopsy forceps. 2. Severe sigmoid diverticulosis. 3. Status post partial gastrectomy. 4. Mild nonerosive gastritis. 5. No overt signs of bleeding seen throughout the entire procedure, including intubation at terminal ileum. 06/28/16- hb stable >14. No overt signs gi bleed. RECOMMENDATIONS: 1. Consider outpatient small bowel series. 2. Advance diet as tolerated. 3. f/u with pcp Will sign off. Problems: (1) Elevated troponin Status: Acute ICD Code: R79.89 (2) Upper gastrointestinal bleeding Status: Acute ICD Code: K92.2 (3) Carotid artery disease Qualifiers: Laterality: left Qualified Code: I77.9 - Disorder of arteries and arterioles, unspecified Status: Chronic ICD Code: I77.9 (4) Hyperlipidemia Status: Chronic ICD Code: E78.5 Resuscitation Status: CPR: Attempt Resuscitation Pancho Metcalf MD Jun 28, 2016 10:18
[2016-06-28] MEDS ORDERED: Phenylephrine/NS 100 mCg/mL 10 mL Syringe IVPUSH ONE (10:33)
[2016-06-28] MEDS ORDERED: Ondansetron 2 mg/mL 2 mL Inj ONE (10:33)
[2016-06-28] MEDS ORDERED: Propofol 10,000 mCg/mL 20 mL Inj ONE (10:33)
[2016-06-28] MEDS ORDERED: MetoCLOpramide 5 mg/mL 2 mL Inj ONE (10:33)
--- NOTE | 2016-06-28 11:12 | DRSVH ---
[facility] [address] [place] [address] Echocardiogram Report Name: SEMAJ AUGUST MStudy Date : 06/28/2016 Height: 60 in Hospital Exam Location: [facility] Weight: 109 lb Gender: Female BSA: 1.4 m2 : 1945 Age: 71 yrs BP: 125/ 64 mmHg Reason For Study: Chest pain History: smoker Ordering Physician: HOSPITALIST [facility] Performed By: Rose Pop Referring Physician: Dr Alexsandra Cortez Interpretation Summary The ejection fraction is estimated to be 60-65%. Assessment of diastolic parameters suggests a pseudonormalization pattern, consistent with elevated filling pressures. There is moderate to severe mitral annular calcification. There is mild mitral regurgitation. The aortic valve is not well visualized. Leaflet mobility is moderately reduced. The right ventricular systolic pressure is estimated at 44 mmHg assuming a right atrial pressure of 3 mm Hg. Procedure: A two-dimensional transthoracic echocardiogram with color flow and Doppler was performed in limited views only. The study quality was technically adequate. Comparison is made with the echocardiogram of 06/26/2016. The patient was in normal sinus rhythm during the exam. Left Ventricle: The left ventricle is normal in size, wall thickness, and systolic function without any focal wall motion abnormalities. The ejection fraction is estimated to be 60-65%. Assessment of diastolic parameters suggests a pseudonormalization pattern, consistent with elevated filling pressures. Right Ventricle: The right ventricle is normal in size and function. Mitral Valve: There is moderate to severe mitral annular calcification. There is mild mitral regurgitation. Compared to the prior echo study, there has been no change in the severity of mitral regurgitation. Aortic Valve: The aortic valve is not well visualized. Leaflet mobility is moderately reduced. There is trace aortic regurgitation. Tricuspid Valve: The tricuspid valve is normal in structure and function. There is a trace or physiologic amount of tricuspid regurgitation. The right ventricular systolic pressure is estimated at 44 mmHg assuming a right atrial pressure of 3 mm Hg. Great Vessels: The IVC is of normal diameter and collapses greater than 50% with a sniff. This suggests a low right atrial pressure of 3 mm Hg. Pericardium/ Pleura There is no pericardial effusion. MMode/2D Measurements & Calculations LVIDd IVC diam LV reynolds. diameter/BSA LV sys. diameter/BSA : 4.1 cm : 1.5 cm (cm/m^2): 2.9 (cm/m^2): 1.6 LVIDs : 2.3 cm FS: 44.2 % IVSd : 0.9cm LVPWd : 0.9cm Doppler Measurements & Calculations MV E max maxwell MV E/A: 1.2 TR max maxwell MV V2 mean : 135.0 cm/sec Med Peak E' Maxwell : 318.5 cm/sec : 93.6 cm/sec MV A max maxwell TR max PG MV mean PG : 114.8 cm/sec E/E' med: 22.9 : 40.6 mmHg MV P1/2t: 43.8 msec Lat Peak E' Maxwell MV V2 VTI E/E' lat: 11.5 MV dec time E/e' average: 17.2 : 0.15 sec Pulm A Revs Dur MV A dur: 0.10 sec MV P1/2t max maxwell Pulm A Revs Dur - MV A Dur: -0.01 msec MVA(P1/2t): 5.0 cm2 Electronically signed by: Guru Whyte on Reading Physician:06/28/2016 11:11 AM
[2016-06-28] MEDS: MeTOProlol XL 25 mg ER24 Tablet PO SCH (17:30)
--- NOTE | 2016-06-28 18:29 | NUR ---
Ambulation/Output/strength Patient alert and oriented x3, pleasant and cooperative. Reported continuous 2-4/10 back pain that she reports as chronic, administered 650 PO tylenol x2, patient reported pain as tolerable after administration. No chest pain/pressure/discomfort, no reports of abdominal pain, no n/v/d/c and tolerating soft diet and liquids well. Per MD orders, patient saline locked -- voided over 3000ml. Patient up SBA/soft 1PA to BSC, patient continues to report "my legs feel so weak, like Jello" and patient needs a soft 1PA to stand, weak and slightly unsteady on feet. All vital signs within normal limits.
--- NOTE | 2016-06-28 19:31 | PCM.PNMED ---
Subjective Date of Service Jun 28, 2016 Subjective Today: Ms. Babin felt a "flutter" underneath her left breast after eating breakfast this morning but denies chest pain or dyspnea. She denies nausea and vomiting. She has not had a bowel movement since prior to the colonoscopy yesterday. Exam Vital Signs Vital Sign - Last Date Time Temp Pulse Resp B/P Pulse Ox O2 Delivery O2 Flow Rate FiO2 06/28/16 17:29 36.7 84 16 134/64 96 Room Air 06/27/16 10:51 4 Intake and Output 06/27/16 06/27/16 06/28/16 Cumulative From/Thru 15:00 23:00 07:00 06/24/16 08:16 - 06/28/16 06:09 Intake Total 1080 ml 2414 ml 1727 ml 35280 ml Output Total 2250 ml 2200 ml 6153 ml Balance 1080 ml 164 ml -473 ml 8013 ml Intake Oral 1120 ml 300 ml 8576 ml IV Total 140 ml 994 ml 1427 ml 4350 ml Packed Cells 940 ml 300 ml 1240 ml Output Urine Total 2250 ml 2200 ml 5653 ml Stool Total 500 ml # Voids 1 4 15 # Bowel Movements 3 4 Exam General: Alert, Oriented X3, No acute distress. Appears pale. Eyes: EOMI, sclera are pale. Neck: JVD present Mouth: Mucous Membranes Moist Chest & Lungs: Clear to auscultation bilaterally, no rales, rhonchi, or wheezing. Cardiovascular: Regular Rate/Rhythm, Systolic murmur present Abdomen: Nontender, Non-distended, No masses, Normoactive bowel tones, Soft Extremities: No cyanosis/clubbing/edema bilat Neurological: Grossly Neurologically Intact IVs and Medications Medications Reviewed: Medications were reviewed in detail Lab and Diagnostics Result Diagram: 06/28/16 0850 06/28/16 0850 X-Rays, CTs and MRIs PROCEDURE: X-RAY CHEST ONE VIEW, PORTABLE IMPRESSION: No acute cardiopulmonary disease. Approved by: Milind Ryder M.D. on 06/24/2016 at 9:21 PROCEDURE: CT ABDOMEN AND PELVIS WITHOUT CONTRAST IMPRESSION: No bowel obstruction. Incidental colonic diverticulosis. Appendix not visualized however no suspicious right lower quadrant inflammatory changes. Please correlate clinically and with laboratory data. Approved by: Alex Kennedy M.D. on 06/25/2016 at 14:43 Cardiac Echo Impressions Echocardiogram Report Interpretation Summary The ejection fraction is estimated to be 60-65%. Assessment of diastolic parameters suggests a pseudonormalization pattern, consistent with elevated filling pressures. There is moderate to severe mitral annular calcification. There is mild mitral regurgitation. The aortic valve is not well visualized. Leaflet mobility is moderately reduced. The right ventricular systolic pressure is estimated at 44 mmHg assuming a right atrial pressure of 3 mm Hg. Electronically signed by: Guru Whyte on Reading Physician:06/28/2016 11:11 AM Assessment & Plan 71-year-old female past medical history significant for extensive tobacco use, known carotid vascular disease, and family history of coronary artery disease, presenting with chest pain of acute onset at approximately 2:00 this morning which woke her from sleep and was accompanied with diaphoresis, placed on observation at this time for further evaluation of possible acute coronary syndrome. 1. Acute blood loss anemia. Present on admission. Improving. - Likely secondary to blood loss in GI tract. H&H dropped from 11.6 on admission to 6.7 yesterday. - 3U PRBCs ordered and given yesterday. Transfusion goal >9 given pt's cardiovascular history and symptomatic presentation. - Continue to monitor H&H tomorrow morning 2. Melanotic Acute upper GI bleed. Present on admission. Improving. - Patient is certainly at high risk for gastroesophageal reflux given history of ulcer disease. She has downward trending H&H values and dark stool. However on upper/lower endoscopy, no source of the bleed was noted. We will continue to monitor for signs of active bleed and transfuse as necessary for now. If she continues to bleed, we will search for small bowel or other sources of bleeding. - Dr. Metcalf of GI has been consulted. We appreciate his expertise. - Colonoscopy and upper endoscopy performed yesterday and no overt signs of bleeding seen throughout the entire procedure. - Protonix drip discontinued. - NS @ 125 ml/hr discontinued as patient is now eating and drinking - Trend H&H tomorrow - Aspirin will be resumed as an outpatient but will continue to hold clopidogrel - GI recommends small bowel studies as an outpatient 3. Chest pain. Present on admission. Active. -N-STEMI, elevated troponin. ST depression on EKG during tachycardia and while hemoglobin was decreased. EKG improved after pt received transfusion yesterday - Discussed the case with Cardiology. Given the pt's history, this is likely demand ischemia secondary to acute anemia combined with her coronary artery disease. Echocardiogram showed no evidence of cardiac dysfunction which could support a diagnosis of acute coronary syndrome. Repeat echocardiogram did not show any interim changes -No cardiac catheterization with coronary angiogram while patient has an active GI bleed. We will medically manage. - Hold Plavix - Atorvastatin 40 mg qhs - Continue to monitor on telemetry. -Cardiology consulted. Their time and recommendations are appreciated. -Continue aspirin as an outpatient -Lisinopril 10 mg daily, metoprolol 25 mg daily 4. Diastolic congestive heart failure, chronic. - Echocardiogram showed EF 60-65%, reversed E/A ratio, elevated E/E' with severe LA dilation. Repeat echocardiogram as above - Continue home lisinopril and metoprolol. 5. Hyperlipidemia - Atorvastatin 40 mg qhs - continue on discharge 6. Hypertension - Continue home medications 7. History of carotid artery disease - S/p carotid endarterectomy. She should restart low-dose aspirin outpatient after stable, but there is not a need to continue Plavix at this time. 8. Low back/sacral pain - Restart oral therapy following testing. - Morphine also available for breakthrough pain not controlled with acetaminophen. 9. Nicotine dependence - Nicotine patch will be provided while patient in hospital. - Counseling on smoking cessation was provided to patient during admission Disposition: Continue to monitor hemoglobin and hematocrit tomorrow, and with continued stability, possible discharge home in the next 1-2 days. GI Prophylaxis: Proton Pump Inhibitor VTE Mechanical Devices: Intermittant Pneumatic CD Resuscitation Status: CPR: Attempt Resuscitation Time spent 30 min Attending Statement Patient seen and examined with house staff. Agree with all attached documentation. Marcia Bernal DO Jun 28, 2016 18:16 Jong Samano MD Jun 29, 2016 08:10
[2016-06-28] MEDS: Alum-Mag Hydrox-Simeth 30 mL Suspension PO PRN (20:12)
[2016-06-28] MEDS: RESTFUL LEGS PO PRN (20:15)
--- NOTE | 2016-06-28 21:12 | PROG NOTE ---
[address] [address] PROGRESS NOTE PATIENT: SEMAJ AUGUST : 1945 MR#: [id number] ADMIT: 06/24/2016 JOB ID: [id number] DATE: 06/28/2016 SUBJECTIVE: Patient lying on bed. She is not having any active chest pain or shortness of breath or left arm pain or active GI bleed or new cardiovascular symptoms. In summary, this 71-year-old, pleasant female, who has a history of left carotid endarterectomy, persistent tobacco abuse, hypertension, hyperlipidemia, presented with GI bleed. Yesterday, she was seen by Dr. Oleary from cardiology as she had chest pain. She has diffuse ST depression. Her hemoglobin dropped to 6.7. She was on dual anti-platelet therapy which was discontinued. She received blood transfusion. Her troponin was abnormal, which was thought due to demand ischemia due to severe anemia due to GI bleed. She had an echocardiogram on June 26, 2016. At that time, LV ejection fraction was 60% to 65% without any obvious wall motion abnormalities with normal right ventricular function, mild mitral regurgitation, mild aortic stenosis. The patient underwent upper GI and lower GI endoscopy yesterday, which revealed sigmoid and rectal polyp. Sigmoid diverticulosis. Patient is status post partial gastrectomy. There was mild, nonerosive gastritis. No overt bleeding sign was seen. Small intestine was not evaluated this time. The patient had serial troponins which were abnormal. Hence, the patient had repeat echocardiogram today, which I reviewed by myself. There are no new or obvious wall motion abnormalities. LV ejection remained in the range of 60% to 65%. Blood pressure 109/78, heart rate 86, respiratory rate 20, oxygen saturation 96%. Neck: No apparent JVP. Chest: No obvious crepitation, rhonchi. CVS: Clinically, S1, S2 normal. No S3, no S4. Grade 2/6 ejection systolic murmur at the base. Abdomen: No obvious pulsatile mass. Extremities: No pedal edema. Vascular: No evidence of critical limb ischemia. 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 No obvious motor or sensory deficit. Telemetry revealed sinus rhythm with occasional PVCs. This morning, she has short burst of SVT, rate about 170. LABS: Hemoglobin now improved to 14.2, WBC 13.5, platelets 202. Sodium 139, potassium 3.6. Yesterday this was 3.3. BUN 4, creatinine 0.55, total bilirubin 1.9. AST 59, ALT 23. Troponin T 0.152. In 12-lead EKG, diffuse ST depression, which was seen yesterday at 6 a.m., has improved. QTc about 476 msec. ASSESSMENT AND PLAN: Unstable angina in the setting of profound gastrointestinal bleed with drop in hemoglobin to 6.7, with diffuse ST depression, which got improved after blood transfusion and correction of anemia, with known history of atherosclerotic vascular disease, status post left carotid endarterectomy many years ago, underlying essential hypertension, hypercholesterolemia, persistent tobacco abuse. The patient had upper GI and lower GI endoscopy yesterday which did not reveal any obvious source. Hence, patient will need workup to rule out a small intestinal source. Until we are clear about the source of GI bleed, left heart catheterization is not advisable. She has risk factors for coronary artery disease. However, the current trigger is obvious and most likely we are dealing with demand ischemia in the setting of significant anemia. At this point of time, will recommend medical treatment for possible underlying coronary artery disease. She had bleeding on dual antiplatelet therapy. Hence, at this point of time, will recommend compromise approach and try 81 mg aspirin. She is not on beta santino. She will benefit with beta santino. In order to avoid any significant blood pressure drop, I will cut down lisinopril from 20 to 10 mg and start with metoprolol succinate 25 mg daily. She is already on 40 mg of statin, which was increased yesterday. She is on calcium channel santino, VIDHI inhibitor as well. At present, she is not having active chest pain. Clinically, she is not in heart failure. She had a repeat echocardiogram today which revealed preserved LV function with LV ejection fraction 60% to 65% without any obvious wall motion abnormalities. Hence, at this point of time, she is not high risk. Once her GI workup is completed, consider perfusion study for CAD risk stratification. Will recommend patient to be seen in our cardiology clinic by Dr. Oleary in 2-3 weeks. At this point of time, Cardiology Service will sign off. Total time spent today, about 40 minutes. MENG
[2016-06-29] VITALS (8 sets, daily range): BP systolic 114–144; BP diastolic 54–74; PULSE 68–86; RESP 16–20; O2SAT 94–100
[2016-06-29] MEDS: Sodium Chloride LOK Flush 10 mL Syringe IVFLUSH SCH ×3 (00:01→18:03)
--- NOTE | 2016-06-29 03:34 | NUR ---
Abdominal Cramps: At start of shift, pt. complaining of 5/10 abdominal cramps and "gas pain". Pt. repositioned, Maalox administered. Upon reassessment at 2200, pt. denied pain. By 0000, pt. began complaining again of abdominal cramps, pt. repositioned to left side, warm blanket and warm packs applied to abdominal area, PRN Tylenol administered. Upon pain reassessment at 0100, pt. sleeping soundly in room. Currently, pt. continues to deny pain, will continue to monitor.
[2016-06-29 04:17] LABS: BASOPHILS % (AUTO) 0.2 % (0-3); EOSINOPHILS % (AUTO) 2.9 % (0-5); MONOCYTES % (AUTO) 8.7 % (4-12); Mean Corpuscular Hemoglobin 31.2 pg (27.0-35.0); Mean Corpuscular Volume 89.1 fL (81-100); Platelet Count 221 bil/L (150-400)
[2016-06-29] MEDS: Alum-Mag Hydrox-Simeth 30 mL Suspension PO PRN ×2 (06:32→15:28)
[2016-06-29] MEDS: MeTOProlol XL 25 mg ER24 Tablet PO SCH (09:08)
[2016-06-29] MEDS ORDERED: Pantoprazole 40 mg ER24 Tablet PO ONE (09:20)
--- NOTE | 2016-06-29 11:22 | PATH ---
SURGICAL PATHOLOGY Attending Physician:Pancho Metcalf MD CASE STATUS: Signed Out PATIENT NAME: SEMAJ AUGUST PID: [id number] : 1945 DATE COLLECTED:06/27/2016 00:00 SPECIMEN: 1: Stomach, Biopsy 2: Colon, Biopsy 3: Rectum, Biopsy CLINICAL HISTORY: 1.STOMACH BX 2.SIGMOID POLYP X1 3.RECTAL POLYP X1 FINAL DIAGNOSIS: 1.STOMACH BIOPSIES: MILD CHRONIC GASTRITIS INVOLVING ANTRAL AND FUNDIC MUCOSA. Negative for evidence of Helicobacter. Negative for intestinal metaplasia. Negative for dysplasia and malignancy. 2.SIGMOID COLON POLYP: HYPERPLASTIC POLYP. 3.RECTAL POLYP: HYPERPLASTIC POLYP. ICD10 CODE K29.70 GROSS DESCRIPTION: The specimen is received in three formalin filled containers labeled with the patient's name. 1). The specimen is sublabeled "stomach" and consists of 3 portions of tissue which aggregate to 0.3 x 0.3 x 0.2 CM. The specimen is entirely submitted in cassette 1A. 2). The specimen is sublabeled "sigmoid polyp" and consists of a 0.3 x 0.2 x 0.2 CM portion of tissue which is entirely submitted in cassette 2A. 3). The specimen is sublabeled "rectal polyp" and consists of a 0.3 x 0.3 x 0.3 CM portion of tissue which is entirely submitted in cassette 3A. 06/28/2016 [facility] MICRO DESCRIPTION: See diagnosis. ICD-9 CODES: CPT CODES: 1: 53581 2: 66466 3: 64921 Electronically Signed Out Prieto Rider MD [facility] Pathology [facility] [address], [place] [address] Technical component performed at [facility], [facility] [address], [place], [address]
--- NOTE | 2016-06-29 14:36 | NUR ---
took over care at 2pm
--- NOTE | 2016-06-29 15:08 | NUR ---
Evaluation completed. Please go to "Notes" then click on "Assessments and Notes" (bottom left corner of screen). Then select appropriate discipline tab on top of screen.
--- NOTE | 2016-06-29 18:18 | NUR ---
Heartburn pt c/o continued heartburn this morning. MD informed of pt request for protonix. PRN Maalox, and tums given per MD order. pt noting slight improvement this afternoon/evening. will continue to monitor.
--- NOTE | 2016-06-29 18:27 | PCM.PNMED ---
Subjective Date of Service Jun 29, 2016 Subjective This morning, Ms. Babin reports heartburn that worsened at night. She states that it was better when she was on Protonix prior to the endoscopies. She has not had a bowel movement yet, but she is passing gas. She does not have chest pain or shortness of breath. She continues to feel weak and not back to her usual strength. Exam Vital Signs Vital Sign - Last Date Time Temp Pulse Resp B/P Pulse Ox O2 Delivery O2 Flow Rate FiO2 06/29/16 16:40 36.6 75 18 118/72 95 Room Air 06/27/16 10:51 4 Intake and Output 06/28/16 06/28/16 06/29/16 Cumulative From/Thru 15:00 23:00 07:00 06/24/16 08:16 - 06/29/16 05:53 Intake Total 2273 ml 300 ml 98507 ml Output Total 3915 ml 1500 ml 91697 ml Balance -1642 ml -1200 ml 5171 ml Intake Oral 980 ml 300 ml 9856 ml IV Total 1293 ml 5643 ml Packed Cells 1240 ml Output Urine Total 3915 ml 1500 ml 97491 ml Stool Total 500 ml # Voids 4 19 # Bowel Movements 4 Exam General: Alert, Oriented X3, No acute distress. Appears pale. Eyes: EOMI, sclera are pale. Neck: JVD present Mouth: Mucous Membranes Moist Chest & Lungs: Clear to auscultation bilaterally, no rales, rhonchi, or wheezing. Cardiovascular: Regular Rate/Rhythm, Systolic murmur present Abdomen: Mild epigastric tenderness, Non-distended, No masses, Normoactive bowel tones, Soft Extremities: No cyanosis/clubbing/edema bilat Neurological: Grossly Neurologically Intact IVs and Medications Medications Reviewed: Medications were reviewed in detail Lab and Diagnostics Result Diagram: 06/29/16 0413 06/29/16 0413 X-Rays, CTs and MRIs PROCEDURE: X-RAY CHEST ONE VIEW, PORTABLE IMPRESSION: No acute cardiopulmonary disease. Approved by: Milind Ryder M.D. on 06/24/2016 at 9:21 PROCEDURE: CT ABDOMEN AND PELVIS WITHOUT CONTRAST IMPRESSION: No bowel obstruction. Incidental colonic diverticulosis. Appendix not visualized however no suspicious right lower quadrant inflammatory changes. Please correlate clinically and with laboratory data. Approved by: Alex Kennedy M.D. on 06/25/2016 at 14:43 Cardiac Echo Impressions Echocardiogram Report Interpretation Summary The ejection fraction is estimated to be 60-65%. Assessment of diastolic parameters suggests a pseudonormalization pattern, consistent with elevated filling pressures. There is moderate to severe mitral annular calcification. There is mild mitral regurgitation. The aortic valve is not well visualized. Leaflet mobility is moderately reduced. The right ventricular systolic pressure is estimated at 44 mmHg assuming a right atrial pressure of 3 mm Hg. Electronically signed by: Guru Whyte on Reading Physician:06/28/2016 11:11 AM Additional Diagnostics SURGICAL PATHOLOGY FINAL DIAGNOSIS: 1.STOMACH BIOPSIES: MILD CHRONIC GASTRITIS INVOLVING ANTRAL AND FUNDIC MUCOSA. Negative for evidence of Helicobacter. Negative for intestinal metaplasia. Negative for dysplasia and malignancy. 2.SIGMOID COLON POLYP: HYPERPLASTIC POLYP. 3.RECTAL POLYP: HYPERPLASTIC POLYP. Electronically Signed Out Prieto Rider MD Assessment & Plan 71-year-old female past medical history significant for extensive tobacco use, known carotid vascular disease, and family history of coronary artery disease, presenting with chest pain of acute onset at approximately 2:00 this morning which woke her from sleep and was accompanied with diaphoresis, placed on observation at this time for further evaluation of possible acute coronary syndrome. 1. Melanotic Acute upper GI bleed. Present on admission. Stable. - Patient is certainly at high risk for gastroesophageal reflux given history of ulcer disease. She had downward trending H&H values and dark stool. However on upper/lower endoscopy, no source of the bleed was noted. We will continue to monitor for signs of active bleed and transfuse as necessary for now. If she continues to bleed, we will search for small bowel or other sources of bleeding. - Dr. Metcalf of GI has been consulted. We appreciate his expertise. - Colonoscopy and upper endoscopy performed and no overt signs of bleeding seen throughout the entire procedure. Pathology results as above. - Protonix drip discontinued. - NS @ 125 ml/hr discontinued as patient is now eating and drinking - Trend H&H tomorrow - Aspirin resumed for tomorrow morning but will continue to hold clopidogrel - GI recommends small bowel studies as an outpatient - Monitor for melena 2. Acute blood loss anemia. Present on admission. Stable. - Likely secondary to blood loss in GI tract. H&H dropped from 11.6 on admission to 6.7 but today it is 12.8. - 3U PRBCs ordered and given 2 days ago. Transfusion goal >9 given pt's cardiovascular history and symptomatic presentation. - Continue to monitor H&H tomorrow morning - Physical therapy today 3. Chest pain. Present on admission. Active. -Probable N-STEMI. Elevated troponin. ST depression on EKG during tachycardia and while hemoglobin was decreased. EKG improved after pt received transfusion. - Discussed the case with Cardiology. Given the pt's history, this is likely demand ischemia secondary to acute anemia combined with probable coronary artery disease. Echocardiogram showed no evidence of cardiac dysfunction which could support a diagnosis of acute coronary syndrome. However, patient has several risk factors including known carotid artery disease. Repeat echocardiogram did not show any interim changes. No cardiac catheterization with coronary angiogram while patient has an active GI bleed and unidentified source of blood loss. We will medically manage. - Hold Plavix since pt had an active bleed while on dual anti-platelet therapy -Continue aspirin tomorrow morning - Atorvastatin 40 mg qhs - Continue to monitor on telemetry. -Cardiology consulted as above. Their time and recommendations were appreciated. -Lisinopril 10 mg daily, metoprolol 25 mg daily 4. Diastolic congestive heart failure, chronic. - Echocardiogram showed EF 60-65%, reversed E/A ratio, elevated E/E' with severe LA dilation. Repeat echocardiogram as above. - Continue lisinopril and metoprolol. 5. Hyperlipidemia - Atorvastatin 40 mg qhs - continue on discharge 6. Hypertension - Continue home medications amlodipine 10 mg and HCTZ 25 mg 7. History of carotid artery disease - S/p carotid endarterectomy. She should restart low-dose aspirin, but there is not a need to continue Plavix at this time. 8. Low back/sacral pain - Restart oral therapy following testing. - Morphine also available for breakthrough pain not controlled with acetaminophen. 9. Nicotine dependence - Nicotine patch will be provided while patient in hospital. - Counseling on smoking cessation was provided to patient during admission Disposition: Continue to monitor hemoglobin and hematocrit tomorrow, and with continued stability, possible discharge home in the next 1-2 days. GI Prophylaxis: Proton Pump Inhibitor VTE Mechanical Devices: Intermittant Pneumatic CD Resuscitation Status: CPR: Attempt Resuscitation Time spent 35 minutes Attending Statement Patient seen and examined with house staff. Agree with all attached documentation. Marcia Bernal DO Jun 29, 2016 16:53 Jong Samano MD Jul 07, 2016 07:31
[2016-06-30] MEDS: Sodium Chloride LOK Flush 10 mL Syringe IVFLUSH SCH ×2 (00:53→08:49)
[2016-06-30 03:16] VITALS: BP 118/63; PULSE 74; RESP 16; O2SAT 95
[2016-06-30 03:48] LABS: BASOPHILS % (AUTO) 0.2 % (0-3); EOSINOPHILS % (AUTO) 6.3 % (0-5); MONOCYTES % (AUTO) 11.1 % (4-12); Mean Corpuscular Hemoglobin 31.7 pg (27.0-35.0); Mean Corpuscular Volume 91.3 fL (81-100); NEUTROPHILS % (AUTO) 60.8 % (40-74); Platelet Count 242 bil/L (150-400)
--- NOTE | 2016-06-30 04:55 | NUR ---
BM pt hasn't had BM since the post colonoscopy, pt passing gas and reflux most of the day, gave pt prune juice and senna pt able to have soft BM around 0400 this morning. pt feeling like her her reflux has improved since re-starting protonix.
[2016-06-30] MEDS: Alum-Mag Hydrox-Simeth 30 mL Suspension PO PRN (06:16)
--- NOTE | 2016-06-30 06:27 | NUR ---
BM/reflux pt requesting coffee this morning, after drinking it she c/o reflux, she asked for maalox which was given with good relief, talked to pt about coffee being a irritant to her reflux. pt also having another soft BM
[2016-06-30] MEDS ORDERED: Pantoprazole 40 mg ER24 Tablet PO SCH (07:30)
[2016-06-30 08:00] VITALS: BP 129/78; PULSE 79; RESP 18; O2SAT 96
[2016-06-30] MEDS: MeTOProlol XL 25 mg ER24 Tablet PO SCH (08:44)
--- NOTE | 2016-06-30 11:03 | PCM.DIMED ---
Marcia Bernal DO 06/30/16 1043: Discharge Instructions Date of Service Jun 30, 2016 Dates of Hospitalization Jun 24, 2016 at 15:19 Discharge Diagnosis Discharge Diagnosis 1. Melanotic acute upper GI bleed. 2. Acute blood loss anemia. 3. Chest pain. 4. Diastolic congestive heart failure 5. Hyperlipidemia 6. Hypertension 7. History of carotid artery disease 8. Low back/sacral pain 9. Nicotine dependence Diet Heart Healthy Activity Limited until seen by PCP Call your provider Fever or Chills, Shortness of breath, Bleeding, Chest pain, Vomitting, Weakness (unilateral) Patient Instructions For your heart, continue amlodipine 10 mg once daily, hydrochlorothiazide 25 mg once daily, and aspirin 81 mg once daily. Decrease lisinopril to 10 mg once daily. Start metoprolol succinate 25 mg once daily and atorvastatin 40 mg once daily at bedtime. Stop clopidogrel 75 mg once daily. You will need to follow up with a school standards coach in 2-3 weeks to further discuss your previous chest pain. Before seeing the school standards coach, you should follow up with your primary care provider in 1 week to discuss possibly doing a small bowel series to look for a source of bleeding and to discuss the possibility of continuing the pantoprazole medication beyond 2 weeks. You should also have follow up blood work to check your complete blood cell count and basic metabolic panel to look to see if you have anemia or have changes in your kidney function. For your heartburn, continue pantoprazole 40 mg once daily for 2 weeks and then discuss with your primary care provider. If pantoprazole is too expensive, then instead, you can use [id number] omeprazole 20 mg and take 1 tablet with breakfast and 1 tablet with dinner daily for 2 weeks. You had 2 polyps in your colon and you should discuss when to have a repeat colonoscopy. Follow-up Provider: Alexsandra Cortez MD Follow-up with PCP in: 1 week Provider: Brady Oleary MD Follow-up in: 2 weeks (2-3 weeks) Narciso Roldan MD 07/01/16 0729: Discharge Instructions Attending's Statement The patient was seen and examined together with Dr. Bernal on 06/30/2016 and I agree with the history, exam and plan as outlined in the note above. . Marcia Bernal DO Jun 30, 2016 10:43 Narciso Roldan MD Jul 01, 2016 07:29
[2016-06-30 11:21] VITALS: PULSE 80
[2016-06-30] MEDS ORDERED: ATOR40TA69 PO (11:48)
[2016-06-30] MEDS ORDERED: PANT40TA3 PO (11:48)
[2016-06-30] MEDS ORDERED: LISI-567 PO (11:48)
[2016-06-30] MEDS ORDERED: METO25TA99 PO (11:48)
--- NOTE | 2016-06-30 13:12 | NUR ---
Discharge: VSS, a/o, RA O2 sats 96%. Extensive discussion about smoking cessation, pt plans to purchase nicotine patches while at pharmacy filling new scripts. Care notes given r/t new prescriptions and GI bleed. Pt to follow up with Dr Cortez next week, and Dr Oleary in 2-3 wks. IVs d/c'd intact, home meds returned to pt. D/c'd home with all personal belongings, son providing transport.
--- NOTE | 2016-06-30 14:11 | NUR ---
Social Work Note: Discharge Data& Assessment: EMR reviewed. Per pt is medically improved and ready to discharge home via POV. Trang Babin is a 71 year old female admitted on 06/24/2016 for chest pain and possible GI bleed. Per pt is medically ready for discharge. Pt is independent in her room and at baseline. SW met with pt at bedside to confirm discharge plan and assess for any unmet needs. Pt confirmed her family is coming to transport her home and denies any other needs. SW confirmed that pt has been provided with DPOA/Advance Directive paperwork to review and complete when possible for her chart. No other discharge needs identified. All updated and agreeable to plan. Plan: Per pt is medically improved and ready to discharge home via POV. Pt confirmed her family is coming to transport her home and denies any other needs. No other discharge needs identified. All updated and agreeable to plan. MITCHELL Todd
--- NOTE | 2016-07-01 21:43 | PCM.DC.MED ---
Discharge Summary Date of Service Jul 01, 2016 Dates of Hospitalization Date of Hospital Admission Jun 24, 2016 at 15:19 Date of Discharge: Jun 30, 2016 Providers: Admitting Physician: Arben Liang DO Primary Care Physician: Alexsandra Cortez MD Attending Physician: Arben Liang DO Diagnosis at Time of Discharge Diagnosis at Time of Discharge 1. Melanotic acute upper gastrointestinal bleed. 2. Acute blood loss anemia. 3. Chest pain. 4. Diastolic congestive heart failure 5. Hyperlipidemia 6. Hypertension 7. History of carotid artery disease 8. Low back and sacral pain 9. Nicotine dependence Procedures XRay, CTs & MRIs PROCEDURE: X-RAY CHEST ONE VIEW, PORTABLE IMPRESSION: No acute cardiopulmonary disease. Approved by: Milind Ryder M.D. on 06/24/2016 at 9:21 PROCEDURE: CT ABDOMEN AND PELVIS WITHOUT CONTRAST IMPRESSION: No bowel obstruction. Incidental colonic diverticulosis. Appendix not visualized however no suspicious right lower quadrant inflammatory changes. Please correlate clinically and with laboratory data. Approved by: Alex Kennedy M.D. on 06/25/2016 at 14:43 Cardiac Echo Impression Echocardiogram Report Interpretation Summary The ejection fraction is estimated to be 60-65%. Assessment of diastolic parameters suggests a pseudonormalization pattern, consistent with elevated filling pressures. There is moderate to severe mitral annular calcification. There is mild mitral regurgitation. The aortic valve is not well visualized. Leaflet mobility is moderately reduced. The right ventricular systolic pressure is estimated at 44 mmHg assuming a right atrial pressure of 3 mm Hg. Electronically signed by: Guru Whyte on Reading Physician:06/28/2016 11:11 AM Other Diagnostics SURGICAL PATHOLOGY FINAL DIAGNOSIS: 1.STOMACH BIOPSIES: MILD CHRONIC GASTRITIS INVOLVING ANTRAL AND FUNDIC MUCOSA. Negative for evidence of Helicobacter. Negative for intestinal metaplasia. Negative for dysplasia and malignancy. 2.SIGMOID COLON POLYP: HYPERPLASTIC POLYP. 3.RECTAL POLYP: HYPERPLASTIC POLYP. Electronically Signed Out Prieto Rider MD Brief History From the history and physical performed by Dr. Arben Liang on 06/24/2016 : 71 year-old female past medical history of known vascular disease, status right endarterectomy, and long history of tobacco dependence, presenting to emergency room today following chest pain of abrupt onset around 2:00 in the morning which woke her from sleep. At that time she noted experiencing profuse diaphoresis, intermittent sweats and chills, and shortness of breath. Condition did improve over next 15 minutes, she has continued to experience recurrent palpitations and chest pressure since that time. Preceding this event she has noted approximately 1 week history of upset stomach and indigestion, abnormal bowel function intermittent constipation and a bout of diarrhea yesterday evening. Additionally she notes experiencing significant amount of gas and bloating which is uncommon for her. She denies any previous history of chest pressure or pain experienced earlier today. She has not been experiencing any exertional dyspnea, or anginal symptoms preceding this event. She she follows regularly with her primary care doctor in outpatient setting, after [facility], who had noted previously that she suffered from hyperlipidemia and elevated blood pressures but these have been appropriately managed and she reports are in good control. She denies any history of extensive cardiac workup , as she has never experienced any chest pains or other cardiac symptoms in the past. At time of my exam she notes continued to experience some fluttering sensations of heart, without overt chest pain. She denies any recurrence of diaphoresis, or chills since initial event. She does note continued gassiness and bloating. She also notes significant low back/sacral pain, she experiences intermittently but is much worse today especially after the last couple of hours of hospital bed. He has no other complaints at this time. Hospital Course 71-year-old female past medical history significant for extensive tobacco use, known carotid vascular disease, and family history of coronary artery disease, presenting with chest pain of acute onset at approximately 2:00 this morning which woke her from sleep and was accompanied with diaphoresis, placed on observation at this time for further evaluation of possible acute coronary syndrome. 1. Melanotic Acute upper gastrointestinal bleed. Present on admission. Stable. - Patient was certainly at high risk for gastroesophageal reflux given history of ulcer disease. She had downward trending hemoglobin and hematocrit values and dark stool. However, on upper and lower endoscopy, no source of the bleed was noted. We continued to monitor for signs of active bleed. - Dr. Metcalf of gastroenterology had been consulted. We appreciated his expertise. - Pathology results as above. No signs of H. pylori infection. She had sigmoid and rectal hyperplastic polyps. - Patient was on a pantoprazole drip prior to the endoscopies and then continued on oral pantoprazole. - Fecal occult blood was negative on 06/29/16. - Aspirin resumed but continued to hold clopidogrel. - Gastroenterology recommended to consider a small bowel studies as an outpatient. Patient may need a referral to gastroenterology as an outpatient. 2. Acute blood loss anemia. Present on admission. Stable. - Likely secondary to blood loss in gastrointestinal tract. Hemoglobin and hematocrit dropped from 11.6 on admission to 6.7 but increased to 13.4 on day of discharge. - Three units of packed red blood cells ordered and given on 06/27/16. - Recommend continued monitoring of complete blood cell count as an outpatient. 3. Chest pain. Present on admission. Active. -Probable non-ST elevation myocardial infarction. She has an elevated troponin. She also had ST depression on electrocardiogram during tachycardia and while her hemoglobin was decreased. Electrocardiogram improved after patient received transfusion. - Discussed the case with cardiology. Given the patient's history of carotid artery disease, this was likely demand ischemia secondary to acute anemia combined with probable coronary artery disease. Echocardiogram showed no evidence of cardiac dysfunction, which could support a diagnosis of acute coronary syndrome. However, patient had several risk factors including known carotid artery disease, hypertension, and tobacco use. Repeat echocardiogram did not show any interim changes. Patient will not have a cardiac catheterization with coronary angiogram while she has an active gastrointestinal bleed and unidentified source of the blood loss. She will be medically managed for now. - Held clopidogrel since patient had an active bleed while on dual anti- platelet therapy. - Medication management: aspirin daily, atorvastatin 40 mg at bedtime, lisinopril 10 mg daily, and metoprolol 25 mg daily. 4. Diastolic congestive heart failure, chronic. - Echocardiogram showed EF 60-65%, reversed E/A ratio, elevated E/E' with severe LA dilation. Repeat echocardiogram as above. - Continued lisinopril and metoprolol. 5. Hyperlipidemia, chronic. - Continued atorvastatin 40 mg at bedtime 6. Hypertension, chronic. - Continued home medications of amlodipine 10 mg and hydrochlorothiazide 25 mg in addition to the above regimen in #3 7. History of carotid artery disease, chronic. - Status post carotid endarterectomy. She was restarted on low-dose aspirin as above. 8. Low back and sacral pain, chronic. - Restarted oral therapy following testing. 9. Nicotine dependence - Nicotine patch was provided while patient in hospital. - Counseling on smoking cessation was provided to patient during admission. Echocardiogram showed moderate to severe mitral annular calcification. Patient stated that she knew that she had a heart murmur for a long time. Exam Vital Signs (Last) Date Time Temp Pulse Resp B/P Pulse Ox O2 Delivery O2 Flow Rate FiO2 06/30/16 11:21 80 06/30/16 08:00 36.5 18 129/78 96 Room Air 06/27/16 10:51 4 Exam General: Patient is alert and oriented, in no acute distress. Pleasant and cooperative examination HEENT: Pupils are round and reactive to light, extraocular eye muscles are intact. Mucous membranes are moist. No oral lesions noted. Neck is supple without masses. No JVD demonstrated. Heart: Grade III/ systolic ejection murmur that radiates to the axilla. Regular rate and rhythm, no rubs, or gallops. Lungs: Clear to auscultation bilaterally. No wheezes crackles or rhonchi. Abdomen: Bowel sounds present, normoactive. Abdomen is nontender and nondistended. No organomegaly noted on palpation. No guarding. Extremities: Well perfused. Demonstrate no edema, no calf pain on palpation. Dorsal pedis pulses present bilaterally. Neurologic: Nonfocal examination. Cranial nerves II through XII are grossly intact. There is no tremor or other gross abnormality noted on exam. Psychologic: Normal mood and affect. Behavior appropriate. Test 06/24/16 08:10 06/24/16 11:02 06/25/16 05:30 06/26/16 07:27 Prothrombin Time 10.6sec (8.1-12.5) Prothromb Time International Ratio 0.99ratio Hemoglobin A1c 6.0% (4.8-5.6) Hold Urine Received (Received) Triglycerides Level 103mg/dL (0-149) Cholesterol Level 131mg/dL (100-199) LDL Cholesterol, Calculated 71.400mg/dL (0-99) VLDL Cholesterol 20.600mg/dL HDL Cholesterol 39mg/dL (>39) Cholesterol/HDL Ratio 3.36 (0.0-4.4) Magnesium Level 2.0mg/dL (1.6-2.6) Thyroid Stimulating Hormone (TSH) 3.260uIU/mL (0.450-4.500) Free Thyroxine 1.36ng/dL (0.82-1.77) Test 06/27/16 21:20 06/29/16 04:13 06/30/16 03:03 Hold [place] Top Tube Received (Received) Troponin T 0.158ug/L (0.0-0.011) White Blood Count 10.9th/mm3 (3.8-10.1) Red Blood Count 4.23mil/mm3 (3.90-5.20) Hemoglobin 13.4g/dL (12.0-15.6) Hematocrit 38.6% (35.0-46.0) Mean Corpuscular Volume 91.3fL (81-100) Mean Corpuscular Hemoglobin 31.7pg (27.0-35.0) Mean Corpuscular Hemoglobin Concent 34.7% (32.0-37.0) Red Cell Distribution Width 15.0% (12.3-15.4) Platelet Count 242bil/L (150-400) Neutrophils (%) (Auto) 60.8% (40-74) Lymphocytes (%) (Auto) 21.4% (14-46) Monocytes (%) (Auto) 11.1% (4-12) Eosinophils (%) (Auto) 6.3% (0-5) Basophils (%) (Auto) 0.2% (0-3) Sodium Level 138mEq/L (134-144) Potassium Level 4.0mEq/L (3.5-5.2) Chloride Level 95mEq/L (97-108) Carbon Dioxide Level 29mmol/L (18-29) Blood Urea Nitrogen 13mg/dL (8-27) Creatinine 0.67mg/dL (0.57-1.00) Estimat Glomerular Filtration Rate 125mL/min (>59) Glucose Level 105mg/dL (60-99) Calcium Level 9.3mg/dL (8.5-10.1) Total Bilirubin 1.2mg/dL (0.0-1.2) Aspartate Amino Transf (AST/SGOT) 34U/L (0-50) Alanine Aminotransferase (ALT/SGPT) 21U/L (0-32) Alkaline Phosphatase 43U/L (25-165) Total Protein 6.1g/dL (6.4-8.4) Albumin 3.9g/dL (3.4-5.0) Discharge Medications Discharge Medications Amlodipine (Amlodipine) 10 Mg Tablet 10 MG PO DAILY (Reported) Aspirin (Aspirin) 81 Mg Tablet 81 MG PO DAILY (Reported) Atorvastatin Calcium (Atorvastatin Calcium) 40 Mg Tablet 40 MG PO HS Prescribed by: MARILIN AGUIAR DO Hydrochlorothiazide (Hydrochlorothiazide) 25 Mg Tablet 25 MG PO DAILY (Reported ) Lisinopril (Lisinopril) 20 Mg Tablet 10 MG PO DAILY Prescribed by: MARILIN AGUIAR DO Metoprolol Succinate ER (Metoprolol Succinate ER) 25 Mg Tab.er.24h 25 MG PO DAILY Prescribed by: MARILIN AGUIAR DO Multivitamin (Multivitamins) 1 Each Capsule 1 EACH PO DAILY (Reported) Pantoprazole DR (Pantoprazole DR) 40 Mg Tablet.dr 40 MG PO DAILYAC Prescribed by: MARILIN AGUIAR DO As needed Acetaminophen (Acetaminophen) 500 Mg Tablet 500 MG PO Q6H PRN PRN For Pain ( Reported) Albuterol HFA (Proair HFA) 8.5 Gm Hfa.aer.ad 2 PUFFS INHALATION Q4H PRN PRN For Shortness of Breath (Reported) Triamcinolone Acet (Triamcinolone Acetonide Cream) 1 Applic/0.25 Gm Cr 1 APPLIC EXT BID PRN PRN rash (Reported) Followup Plan Discharge Diet: Heart Healthy Discharge Activity: Limited until seen by PCP Patient Instructions For your heart, continue amlodipine 10 mg once daily, hydrochlorothiazide 25 mg once daily, and aspirin 81 mg once daily. Decrease lisinopril to 10 mg once daily. Start metoprolol succinate 25 mg once daily and atorvastatin 40 mg once daily at bedtime. Stop clopidogrel 75 mg once daily. You will need to follow up with a tar processing technician in 2-3 weeks to further discuss your previous chest pain. Before seeing the tar processing technician, you should follow up with your primary care provider in 1 week to discuss possibly doing a small bowel series to look for a source of bleeding and to discuss the possibility of continuing the pantoprazole medication beyond 2 weeks. You should also have follow up blood work to check your complete blood cell count and basic metabolic panel to look to see if you have anemia or have changes in your kidney function. For your heartburn, continue pantoprazole 40 mg once daily for 2 weeks and then discuss with your primary care provider. If pantoprazole is too expensive, then instead, you can use [id number] omeprazole 20 mg and take 1 tablet with breakfast and 1 tablet with dinner daily for 2 weeks. You had 2 polyps in your colon and you should discuss when to have a repeat colonoscopy. Follow-up Provider: Alexsandra Cortez MD Follow-up with PCP in: 1 week Provider: Brady Oleary MD Follow-up in: 2 weeks (2-3 weeks) Time spent Greater than 30 minutes was spent in preparation of discharge with greater than 50% of that time dedicated to patient counseling and coordination of care. . Attending Statement The patient was seen and examined together with Dr. Bernal on 07/01/2016 and I agree with the history, exam and plan as outlined in the note above. . copies to: Brady Oleary MD; Alexsandra Cortez MD, Marissa L DO Jul 01, 2016 21:43 Narciso Roldan MD Jul 02, 2016 07:37
== END 2016-06-30 13:00 | disposition home or self-care (01) | DRG 378 ==
LOC: SED 08:07 → MOC 15:19 → OBSVTOIN 15:19 → MOC 16:12 → PCC 06-27 05:14
PROVIDERS: ADMIT Family Medicine; ATTEND Family Medicine
PROC: 0DBP8ZX Excision of Rectum, Via Natural or Artificial Opening Endoscopic, Diagnostic (ICD-10-PCS; 2016-06-27)
PROC: 30233N1 Transfusion of Nonautologous Red Blood Cells into Peripheral Vein, Percutaneous Approach (ICD-10-PCS; 2016-06-27)
PROC: 0DBN8ZX Excision of Sigmoid Colon, Via Natural or Artificial Opening Endoscopic, Diagnostic (ICD-10-PCS; principal; 2016-06-27 09:00)
PROC: 0DJ08ZZ Inspection of Upper Intestinal Tract, Via Natural or Artificial Opening Endoscopic (ICD-10-PCS; 2016-06-27 09:00)
DX: K92.1 Melena (principal); I50.32 Chronic diastolic (congestive) heart failure; K57.32 Diverticulitis of large intestine without perforation or abscess without bleeding; D62 Acute posthemorrhagic anemia; I24.8 Other forms of acute ischemic heart disease; R07.9 Chest pain, unspecified; F17.210 Nicotine dependence, cigarettes, uncomplicated; Z79.82 Long term (current) use of aspirin; I25.2 Old myocardial infarction; E78.5 Hyperlipidemia, unspecified; I10 Essential (primary) hypertension; M54.5 Low back pain; I77.9 Disorder of arteries and arterioles, unspecified